=== PATIENT | female | born 1945 | race Caucasian/White ===

== ENCOUNTER → 2018-04-22 15:14 | Outpatient (CLI) | payer MEDICARE, SELFPAY ==
--- NOTE | 2018-04-22 15:15 | BI_ITS ---
MAMMOGRAPHY - BILATERAL SCREENING REASON FOR EXAM: Female, 72 years old. Routine annual screening examination. PERTINENT HISTORY: Aunt with breast cancer. TECHNIQUE: Digital bilateral breast isac (3D mammographic acquisition) in the CC and MLO projections. 2-D mediolateral oblique (MLO) and craniocaudad (CC) views of both breasts were obtained. CAD: Full Field Digital Mammography with Computer Added Detection was performed. COMPARISON: Comparison is made with prior study dated April 17, 2016 and December 23, 2014. FINDINGS: Breast Composition: The breasts are heterogeneously dense, which may obscure small masses. There are no dominant masses or suspicious calcifications. Stable calcified nodule in the retroareolar region of the right breast. This most likely represents a fibroadenoma. Stable benign-appearing bilateral axillary lymph nodes. No other significant abnormalities are identified. There has been no significant change since the prior study. BI/SCREENING MAMM (CAD), BILAT IMPRESSION: Stable bilateral screening mammogram. Yearly follow-up mammogram recommended. (A) ASSESSMENT CATEGORY: BIRADS Category 2: Benign. A letter regarding these results will be sent to the patient by the facility within 30 days. Approximately 10% of breast cancers are not detected by mammography. A normal mammogram should not delay biopsy of a clinically suspicious abnormality. [id number] Electronically Signed: Ozzy Miller MD at 10:07 EDT Tel [phone], Service support ,
--- NOTE | 2018-04-22 15:21 | BD_ITS ---
STUDY: DUAL ENERGY X-RAY ABSORPTIOMETRY / DXA REASON FOR EXAM: Female, 72 years old. Early menopause. Loss of height. TECHNIQUE: Bone Mineral Density (BMD) measurements of lumbar spine and bilateral hips were obtained. COMPARISON: Comparison is made with prior study dated April 17, 2016. FINDINGS: Lumbar Spine (L1-L4): g/cm2 (0.788) / T-score (-3.1) / Z-score (-1.4) Findings are suggestive of osteoporosis with a high fracture risk. Left Femur Total: g/cm2 (0.762) / T-score (-2.0) / Z-score (0.3) Left Femoral Neck: g/cm2 (0.663) / T-score (-2.7) / Z-score (-0.9) Right Femur Total: g/cm2 (0.733) / T-score (-2.2) / Z-score (-0.6) Right Femoral Neck: g/cm2 (0.684) / T-score (-2.5) / Z-score (-0.7) The T-Scores on the most recent prior examination were: Lumbar Spine (L1-L4): There has been worsening of bone density since the previous examination. Left Femur Total: which represents an improvement of 1.2%. Right Femur Total: which represents an improvement of 0.3%. BD/Dexa Bone Density Study IMPRESSION: The patient is considered osteoporotic as outlined below according to World Helad[employer] Organization (WHO) criteria with a high fracture risk. There has been improvement of bone density since the previous examination. Reference Information: The T-score is the number of standard deviations above or below the standard which is normal for young adults at their peak bone mineral density. The World Health Organization (WHO) interprets the T-scores as follows: Above -1 Normal bone density Between -1 and -2.5 Osteopenia Equal to / or below -2.5 Osteoporosis As a practical clinical guideline, osteopenia may be graded as follows: Mild -1 through -1.5 Moderate -1.6 through -2.0 Severe -2.1 through -2.4 The Z-score is the number of standard deviations above or below age-matched controls. A Z-score of less than -1.5 would be considered abnormal. References: 1. NIH Osteoporosis and Related Bone Diseases http://www.osteo.org 2. International Society for Clinical Densitometry http://www.iscd.org 3. National Osteoporosis Foundation http://www.nof.org Electronically Signed: Ozzy Miller MD at 15:24 EDT Tel [phone], Service support ,
== END ==
PROVIDERS: Family Provider Nurse Practitioner; PCP Nurse Practitioner; Visit Provider Nurse Practitioner
DX: Z12.31 Encounter for screening mammogram for malignant neoplasm of breast (principal); Z78.0 Asymptomatic menopausal state
CPT/HCPCS: 77063; 77067; 77080

== ENCOUNTER 2020-03-01 07:24 | Day surgery (SDC) | payer MEDICARE, SELFPAY ==
--- NOTE | 2020-02-03 03:44 | HP_ITS ---
Intake Vital Signs 02/03/20 Height 5 ft 3 in 02/03/20 Weight: 115 lb 02/03/20 BP 155/73 H 02/03/20 Blood Pressure Location Rt brachial 02/03/20 Position Sitting 02/03/20 Respiration 18 02/03/20 Pulse 92 02/03/20 Pulse Source Monitor 02/03/20 Temp 97.4 F L 02/03/20 Temp Source Temporal 02/03/20 Pulse Oximetry (%) 95 02/03/20 Oxygen Delivery Method room air Intake Visit Reasons: Inguinal hernia Chief Complaint: possible left inguinal hernia Tongue Stitcher Required: No Is patient in pain?: No Allergies codeine Allergy (Intermediate, Verified 02/03/20 08:13) stomach pains Medications ascorbic acid (vitamin C) 500 mg capsule mg PO DAILY cap 02/03/20 [History Confirmed 02/03/20] atorvastatin 40 mg tablet 40 mg PO DAILY 02/03/20 [History Confirmed 02/03/20] calcium carbonat and lactate 200 mg calcium-vitamin D3 250 unit tablet 1 tab PO DAILY tab 02/03/20 [History] hydrochlorothiazide 12.5 mg capsule 12.5 mg PO DAILY 02/03/20 [History Confirmed 02/03/20] losartan 50 mg tablet 50 mg PO DAILY 02/03/20 [History Confirmed 02/03/20] omeprazole 20 mg capsule,delayed release 20 mg PO DAILY 02/03/20 [History Confirmed 02/03/20] [facility] Medical History Acid reflux (Acute) Hemorrhoids (Acute) Smoker (Acute) COPD (chronic obstructive pulmonary disease) (Chronic) Hypertension (Chronic) Surgical History (Updated 02/03/20 @ 08:10 by Naomie Bradford) History of hysterectomy (Acute) History of laparoscopic cholecystectomy (Acute) History of right inguinal hernia repair (Acute) Family History (Updated 02/03/20 @ 08:11 by Naomie Bradford) Mother Diabetes Father Heart disease Aunt Osteoporosis Social History (Updated 02/03/20 @ 15:[address] Shawn Hickman MD) Smoking Status: Current every day smoker alcohol intake: never substance use type: does not use HPI HPI HPI: MARY REED, is a 74 F who presents to the office today for HPI HPI Surgical H&P: Yes HPI: MARY REED, is a 74 F who presents to the office today for Left groin bulging. The patient reports that for the last 3 months she is noticed left groin bulging. She says this is irritating her. No nausea or vomiting. She also reports that she is due for colonoscopy. Her last colonoscopy was 3 years ago and she had 3 adenomas at this time. She is not having any blood in her stool or abdominal pain. ROS General General: No weight change, appetite, fatigue, colon cancer, breast cancer or weakness HEENT HEENT: No difficulty swallowing, eye injury, eye surgery, swollen glands or hoarseness Endo Endocrine: No thyroid disease, diabetes mellitus, thyroid cancer, Hair loss, heat intolerance or cold intolerance Skin Skin: No rash or changing moles Breast Breast: No left breast lump, right breast lump, nipple discharge, breast pain, abnormal mammogram, abnormal US or breast enlargement Musc Musculoskeletal: No back problems, arthritis, rheumatoid arthritis, gout or joint pain Cardio Cardiovascular: Yes high blood pressure; no murmur, pacemaker, heart disease, atrial fibrillation, heart attack, heart stent, palpitations, shortness of breat with exertion or chest pain Psych Psychiatric: No depression, anxiety or hearing voices Resp Respiratory: No shortness of breath, No sleep apnea, No cough, Yes COPD, No asthma, No emphysema, No wheezing Gastro Gastrointestinal: No abdominal pain, No nausea or vomiting, No diarrhea, No constipation, No blood in stool, Yes acid reflux, Yes hemorrhoids, No ulcers, No gallbladder problem, No black,tarry stools Burt Hematologic: No blood thinners, No blood disorders, No bleeding, No anemia, No blood clots Neuro Neurologic: No system reviewed and no additional complaints, except as docu, No as per HPI, No abnormal walking, No abnormal hearing, No abnormal movements, No abnormal speech, No behavioral changes, No burning sensations, No confusion, No seizure-like activity, No unsteadiness, No dizziness, No localized weakness, No frequent falls, No headache(s), No lack of coordination, No loss of vision, No memory loss, No numbness, No other visual disturbances, No radiating pain, No restless legs, No sensory deficit, No fainting, No tingling, No tremor(s), No weakness, No other Exam Const General: cooperative Orientation: alert, oriented x3 HENMT Head: normal to inspection Ears: hearing grossly normal bilaterally Eyes General: appearance normal, both eyes and all related structures Visual Sorensen: normal visual sorensen by confrontation Neck Neck: normal visual inspection Chest Chest palpation & inspection: normal inspection of the chest Breast Palpation: No nipple discharge Resp Effort & Inspection: normal respiratory effort Auscultation: clear to auscultation bilaterally Cardio Rate: regular rate Rhythm: regular rhythm Heart Sounds: no murmurs GI Inspection: non-distended Palpation: soft, hernia direct inguinal on the left, nontender Musc Cervical Spine: normal cervical lordosis, cervical ROM normal Skin General: no rashes or lesions noted Neuro General: alert, oriented x3 Cranial Nerves: CN's II-XI intact bilaterally Cognition: normal cognition Extrem General: normal to inspection, full ROM Psych Appearance: grossly normal Affect: normal affect Assessment & Plan Problems 1. History of colon polyps Z86.010 2. Left inguinal hernia K40.90 Plan The patient needs a repeat colonoscopy. She had a colonoscopy 3 years ago and she had 3 tubular adenomas at that time. It was recommended that she repeat colonoscopy in 3 years. She is not having any abdominal pain or blood in her stool. I explained endoscopy in detail to the patient. I explained the risks including but not limited to stroke or heart attack with anesthesia, perforation of the GI tract, bleeding, infection. I explained that any of these could necessitate further emergency surgery. The patient understands and all questions were answered sufficiently. The patient wishes to proceed with procedure. The patient is also having a left inguinal hernia which is reducible. I discussed open and laparoscopic approach. The patient would like robotic assisted laparoscopic inguinal hernia repair with mesh. I discussed the procedure in detail. I discussed the risks including not limited to bleeding, infection, injury to other organs, chronic groin pain, conversion to open procedure. The patient understands the risks and is willing to proceed. We discussed the current risks associated with COVID-19. While it is understood that there is a community spread of COVID-19, the risk of nima COVID-19 while at [facility] ([facility]) is very low; however, the risk cannot be completely mitigated because of the community spread of the disease. We discussed in detail the risk of exposure to and/or potential harm posed by the COVID-19 virus with having a surgery/procedure at this time versus the risk of delaying the surgery/procedure. It is not possible to know either the risk of delaying the surgery or procedure or chance of getting an infection with perfect accuracy, but a joint decision was made to proceed at this time with the scheduled surgery/procedure as indicated on the consent form. Patient was notified that we will need to comply with any screening or testing [facility] wishes to perform or that surgery may be delayed for any positive results. Shawn Hickman MD Pager: [facility] [address] [place] [address] [address] [place] [address] Office: Orders Orders: Colonoscopy Today Z86.010 Coding Level of Care Code Off vis,new,level 4 Diagnoses History of colon polyps Z86.010 Left inguinal hernia K40.90 Time Spent (min) 45 02/03/20 3965 <Electronically signed by Shawn pena MD> Date _ Shawn Hickman MD I have re-examined the patient. There are no clinical changes since date of exam.
[2020-02-03 08:12] VITALS: BMI 20.3
--- NOTE | 2020-02-23 10:49 | EKG12_ITS ---
Test Reason : PRE OP Blood Pressure : / mmHG Vent. Rate : 069 BPM Atrial Rate : 069 BPM P-R Int : 196 ms QRS Dur : 080 ms QT Int : 386 ms P-R-T Axes : 079 071 079 degrees QTc Int : 413 ms Sinus rhythm with marked sinus arrhythmia Otherwise normal ECG Confirmed by NICK GRIMALDO ([id number]), avid editor LAWRENCE SINGH ([id number]) on 02/29/2020 9:45:56 AM Referred By: Shawn Hickman Confirmed By:NICK GRIMALDO
[2020-02-23 11:18] LABS: Hematocrit 46.7 % (37-47); Hemoglobin 15.4 g/dL (12.0-15.0); Mean Corpuscular Hgb 30.6 pg (27.0-32.0); Mean Corpuscular Volume 92.7 fL (81-99); Platelet Count 370 K/mm3 (150-450); RBC Distribution Width CV 13.2 % (11.6-14.6); RBC Distribution Width SD 44.9 fl (35.1-43.9); Red Blood Count 5.04 M/mm3 (4.2-5.4); White Blood Count 8.9 K/mm3 (4.4-11.0)
[2020-02-23 11:40] LABS: Anion Gap 4 (5-15); BUN 14 mg/dL (7-18); BUN/Creat Ratio 17.2 RATIO (10-20); Calcium,Total 9.3 mg/dL (8.5-10.1); Chloride 102 mmol/L (98-107); Creatinine, Serum 0.81 mg/dL (0.55-1.02); EST Glomerular Filtration Rate 73 mL/min (>60); Est Glom Filt Rate - Afr Amer 89 mL/min (>60); Glucose 137 mg/dL (74-106); Sodium Level 136 mmol/L (136-145)
[2020-03-01] VITALS (7 sets, daily range): BP systolic 94–138; BP diastolic 49–84; PULSE 72–111; RESP 14–16; TEMP 36.2–36.9; O2SAT 95–97; BMI 20.3
[2020-03-01] MEDS: Lactated Ringers 1,000 ML 100 ML IV (07:59)
--- NOTE | 2020-03-01 08:30 | COLBX_PTH ---
PATIENT: MARY REED LOC: EN U#:[id number] AGE/SX: 74/F ROOM: RE03/01/[address]: Dr. Shawn Hickman MD : 1945 BED: DIS: 03/01/2020 SPEC #: [id number] RECD: 03/01/20 10:51 STATUS: MARTIN NAREN #: [id number] ANABEL: 03/01/20 08:[address]: Shawn Hickman DEPT: SURGICAL PATHOLOGY RECD BY: Dayne Goff ENTERED: 03/01/20 11:46 SP TYPE: COLON BX OTHR DR: Magda Alejandra, CHILD CARE ASSISTANT-C Tissues: A - COLON BIOPSY B - Cecum, NOS Procedures: Surgery Specimen Level IV HEADER OPERATION: Colonoscopy (MAC) PRE-OP DIAGNOSIS: History polyps TISSUE SUBMITTED: A - Hepatic flexure polyp, B - Cecum polyps (2) MICROSCOPIC DIAGNOSIS A. Hepatic flexure polyp, biopsy: Fragments of tubular adenoma. B. Cecum polyps, biopsy: Fragments of tubulovillous adenoma. ANTONIETA:myles 03/02/20 MICROSCOPIC DESCRIPTION Slides are reviewed. GROSS DESCRIPTION A - Received in fixative is one container labeled with the patient's name and designated hepatic flexure polyp. The specimen consists of two irregular fragments of light starks soft tissue that in aggregate measure 0.5 x 0.5 x 0.1 cm. The specimen is totally submitted in one cassette. B - Received in fixative is one container labeled with the patient's name and designated cecum polyps. The specimen consists of multiple irregular fragments of light starks soft tissue that in aggregate measure 2 x 0.2 x 0.1 cm. The specimen is totally submitted in one cassette. / ANTONIETA:myles 03/01/20 TC:1 CPT: 32074
--- NOTE | 2020-03-01 09:08 | OP.CCLET_ITS ---
03/01/2020 Magda Alejandra NP [address] [place] [address] Re : Colonoscopy procedure for Nancy [facility] Dear Ms. Alejandra This procedure was performed on Sunday, March 01, 2020. My impressions and recommendations are as follows: Impressions : - Three polyps at the hepatic flexure and in the cecum, removed with a hot snare. Resected and retrieved. - Diverticulosis in the sigmoid colon. - The examination was otherwise normal on direct and retroflexion views. Recommendations : - Discharge patient to home. - Resume previous diet. - Continue present medications. - Await pathology results. - Repeat colonoscopy in 3 years for surveillance based on pathology results. My findings are described in the full procedure note, which is enclosed. If I can be of further assistance, please feel free to contact me at Doctor phone number(s): , Work: . Sincerely, Shawn Hickman MD 03/01/2020 9:06:58 AM This report has been signed electronically.
--- NOTE | 2020-03-01 09:08 | OP.COLON_ITS ---
Patient Name: Nancy Magaña Procedure Date: 03/01/2020 8:36 AM Date of : 1945 Age: 74 Procedure: Colonoscopy Indications: Surveillance: Personal history of colonic polyps (unknown histology) on last colonoscopy 3 years ago Providers: Shawn Hickman MD Referring MD: Shawn Hickman MD Medicines: Monitored Anesthesia Care Patient Profile: This is a 74 year old female. Refer to note in patient chart for documentation of history and physical. Last Colonoscopy: 3 years ago. Complications: No immediate complications. Procedure: Pre-Anesthesia Assessment: - Prior to the procedure, a History and Physical was performed, and patient medications and allergies were reviewed. The patient's tolerance of previous anesthesia was also reviewed. The risks and benefits of the procedure and the sedation options and risks were discussed with the patient. All questions were answered, and informed consent was obtained. Prior Anticoagulants: The patient has taken no previous anticoagulant or antiplatelet agents. ASA Grade Assessment: II - A patient with mild systemic disease. After reviewing the risks and benefits, the patient was deemed in satisfactory condition to undergo the procedure. After I obtained informed consent, the scope was passed under direct vision. Throughout the procedure, the patient's blood pressure, pulse, and oxygen saturations were monitored continuously. The pediatric colonoscope was introduced through the anus and advanced to the cecum, identified by appendiceal orifice and ileocecal valve. The colonoscopy was performed without difficulty. The patient tolerated the procedure well. The quality of the bowel preparation was good. Scope In: 8:49:45 AM Scope Withdrawal Time 0 hours 6 minutes 5 seconds Scope Out: 9:01:21 AM Total Procedure Duration Time 0 hours 11 minutes 36 seconds Findings: Three polyps were found in the hepatic flexure and cecum. These polyps were removed with a hot snare. Resection and retrieval were complete. A few small-mouthed diverticula were found in the sigmoid colon. The exam was otherwise without abnormality on direct and retroflexion views. Impression: - Three polyps at the hepatic flexure and in the cecum, removed with a hot snare. Resected and retrieved. - Diverticulosis in the sigmoid colon. - The examination was otherwise normal on direct and retroflexion views. Recommendation: - Discharge patient to home. - Resume previous diet. - Continue present medications. - Await pathology results. - Repeat colonoscopy in 3 years for surveillance based on pathology results. Procedure Code(s): --- Professional --- 35535, Colonoscopy, flexible; with removal of tumor(s), polyp(s), or other lesion(s) by snare technique Diagnosis Code(s): --- Professional --- Z86.010, Personal history of colonic polyps D12.3, Benign neoplasm of transverse colon (hepatic flexure or splenic flexure) D12.0, Benign neoplasm of cecum K57.30, Diverticulosis of large intestine without perforation or abscess without bleeding CPT copyright 2017 [employer]. All rights reserved. The codes documented in this report are preliminary and upon coffee plantation worker review may be revised to meet current compliance requirements. Shawn Hickman MD 03/01/2020 9:06:58 AM This report has been signed electronically. Number of Addenda: 0 Note Initiated On: 03/01/2020 8:36 AM
== END 2020-03-01 09:47 | disposition home or self-care (01) ==
LOC: EN 07:24 → AC 07:25
PROVIDERS: Anesthesiology; PCP Nurse Practitioner; Referring Provider Surgery; Visit Provider Surgery
PROC: 0DJD8ZZ Inspection of Lower Intestinal Tract, Via Natural or Artificial Opening Endoscopic (ICD-10-PCS; CPT 45378; principal; 2020-03-01 08:25)
DX: Z12.11 Encounter for screening for malignant neoplasm of colon (principal); Z87.19 Personal history of other diseases of the digestive system; K21.9 Gastro-esophageal reflux disease without esophagitis; I10 Essential (primary) hypertension; J44.9 Chronic obstructive pulmonary disease, unspecified; F17.200 Nicotine dependence, unspecified, uncomplicated; K40.90 Unilateral inguinal hernia, without obstruction or gangrene, not specified as recurrent; D12.0 Benign neoplasm of cecum; D12.3 Benign neoplasm of transverse colon; K57.30 Diverticulosis of large intestine without perforation or abscess without bleeding
CPT/HCPCS: 45385; 36415; 80048; 85027; 88305; 93005; J7120; J2405

== ENCOUNTER 2020-03-03 10:23 | Day surgery (SDC) | payer MEDICARE, SELFPAY ==
--- NOTE | 2020-02-03 03:44 | HP_ITS ---
Intake Vital Signs 02/03/20 Height 5 ft 3 in 02/03/20 Weight: 115 lb 02/03/20 BP 155/73 H 02/03/20 Blood Pressure Location Rt brachial 02/03/20 Position Sitting 02/03/20 Respiration 18 02/03/20 Pulse 92 02/03/20 Pulse Source Monitor 02/03/20 Temp 97.4 F L 02/03/20 Temp Source Temporal 02/03/20 Pulse Oximetry (%) 95 02/03/20 Oxygen Delivery Method room air Intake Visit Reasons: Inguinal hernia Chief Complaint: possible left inguinal hernia Childcare Director Required: No Is patient in pain?: No Allergies codeine Allergy (Intermediate, Verified 02/03/20 08:13) stomach pains Medications ascorbic acid (vitamin C) 500 mg capsule mg PO DAILY cap 02/03/20 [History Confirmed 02/03/20] atorvastatin 40 mg tablet 40 mg PO DAILY 02/03/20 [History Confirmed 02/03/20] calcium carbonat and lactate 200 mg calcium-vitamin D3 250 unit tablet 1 tab PO DAILY tab 02/03/20 [History] hydrochlorothiazide 12.5 mg capsule 12.5 mg PO DAILY 02/03/20 [History Confirmed 02/03/20] losartan 50 mg tablet 50 mg PO DAILY 02/03/20 [History Confirmed 02/03/20] omeprazole 20 mg capsule,delayed release 20 mg PO DAILY 02/03/20 [History Confirmed 02/03/20] [facility] Medical History Acid reflux (Acute) Hemorrhoids (Acute) Smoker (Acute) COPD (chronic obstructive pulmonary disease) (Chronic) Hypertension (Chronic) Surgical History (Updated 02/03/20 @ 08:10 by Naomie Bradford) History of hysterectomy (Acute) History of laparoscopic cholecystectomy (Acute) History of right inguinal hernia repair (Acute) Family History (Updated 02/03/20 @ 08:11 by Naomie Bradford) Mother Diabetes Father Heart disease Aunt Osteoporosis Social History (Updated 02/03/20 @ 15:[address] Shawn Hickman MD) Smoking Status: Current every day smoker alcohol intake: never substance use type: does not use HPI HPI HPI: MARY REED, is a 74 F who presents to the office today for HPI HPI Surgical H&P: Yes HPI: MARY REED, is a 74 F who presents to the office today for Left groin bulging. The patient reports that for the last 3 months she is noticed left groin bulging. She says this is irritating her. No nausea or vomiting. She also reports that she is due for colonoscopy. Her last colonoscopy was 3 years ago and she had 3 adenomas at this time. She is not having any blood in her stool or abdominal pain. ROS General General: No weight change, appetite, fatigue, colon cancer, breast cancer or weakness HEENT HEENT: No difficulty swallowing, eye injury, eye surgery, swollen glands or hoarseness Endo Endocrine: No thyroid disease, diabetes mellitus, thyroid cancer, Hair loss, heat intolerance or cold intolerance Skin Skin: No rash or changing moles Breast Breast: No left breast lump, right breast lump, nipple discharge, breast pain, abnormal mammogram, abnormal US or breast enlargement Musc Musculoskeletal: No back problems, arthritis, rheumatoid arthritis, gout or joint pain Cardio Cardiovascular: Yes high blood pressure; no murmur, pacemaker, heart disease, atrial fibrillation, heart attack, heart stent, palpitations, shortness of breat with exertion or chest pain Psych Psychiatric: No depression, anxiety or hearing voices Resp Respiratory: No shortness of breath, No sleep apnea, No cough, Yes COPD, No asthma, No emphysema, No wheezing Gastro Gastrointestinal: No abdominal pain, No nausea or vomiting, No diarrhea, No constipation, No blood in stool, Yes acid reflux, Yes hemorrhoids, No ulcers, No gallbladder problem, No black,tarry stools Burt Hematologic: No blood thinners, No blood disorders, No bleeding, No anemia, No blood clots Neuro Neurologic: No system reviewed and no additional complaints, except as docu, No as per HPI, No abnormal walking, No abnormal hearing, No abnormal movements, No abnormal speech, No behavioral changes, No burning sensations, No confusion, No seizure-like activity, No unsteadiness, No dizziness, No localized weakness, No frequent falls, No headache(s), No lack of coordination, No loss of vision, No memory loss, No numbness, No other visual disturbances, No radiating pain, No restless legs, No sensory deficit, No fainting, No tingling, No tremor(s), No weakness, No other Exam Const General: cooperative Orientation: alert, oriented x3 HENMT Head: normal to inspection Ears: hearing grossly normal bilaterally Eyes General: appearance normal, both eyes and all related structures Visual Sorensen: normal visual sorensen by confrontation Neck Neck: normal visual inspection Chest Chest palpation & inspection: normal inspection of the chest Breast Palpation: No nipple discharge Resp Effort & Inspection: normal respiratory effort Auscultation: clear to auscultation bilaterally Cardio Rate: regular rate Rhythm: regular rhythm Heart Sounds: no murmurs GI Inspection: non-distended Palpation: soft, hernia direct inguinal on the left, nontender Musc Cervical Spine: normal cervical lordosis, cervical ROM normal Skin General: no rashes or lesions noted Neuro General: alert, oriented x3 Cranial Nerves: CN's II-XI intact bilaterally Cognition: normal cognition Extrem General: normal to inspection, full ROM Psych Appearance: grossly normal Affect: normal affect Assessment & Plan Problems 1. History of colon polyps Z86.010 2. Left inguinal hernia K40.90 Plan The patient needs a repeat colonoscopy. She had a colonoscopy 3 years ago and she had 3 tubular adenomas at that time. It was recommended that she repeat colonoscopy in 3 years. She is not having any abdominal pain or blood in her stool. I explained endoscopy in detail to the patient. I explained the risks including but not limited to stroke or heart attack with anesthesia, perforation of the GI tract, bleeding, infection. I explained that any of these could necessitate further emergency surgery. The patient understands and all questions were answered sufficiently. The patient wishes to proceed with procedure. The patient is also having a left inguinal hernia which is reducible. I discussed open and laparoscopic approach. The patient would like robotic assisted laparoscopic inguinal hernia repair with mesh. I discussed the procedure in detail. I discussed the risks including not limited to bleeding, infection, injury to other organs, chronic groin pain, conversion to open procedure. The patient understands the risks and is willing to proceed. We discussed the current risks associated with COVID-19. While it is understood that there is a community spread of COVID-19, the risk of nima COVID-19 while at [facility] ([facility]) is very low; however, the risk cannot be completely mitigated because of the community spread of the disease. We discussed in detail the risk of exposure to and/or potential harm posed by the COVID-19 virus with having a surgery/procedure at this time versus the risk of delaying the surgery/procedure. It is not possible to know either the risk of delaying the surgery or procedure or chance of getting an infection with perfect accuracy, but a joint decision was made to proceed at this time with the scheduled surgery/procedure as indicated on the consent form. Patient was notified that we will need to comply with any screening or testing [facility] wishes to perform or that surgery may be delayed for any positive results. Shawn Hickman MD Pager: [facility] [address] [place] [address] [address] [place] [address] Office: Orders Orders: Colonoscopy Today Z86.010 Coding Level of Care Code Off vis,new,level 4 Diagnoses History of colon polyps Z86.010 Left inguinal hernia K40.90 Time Spent (min) 45 02/03/20 6045 <Electronically signed by Shawn pena MD> Date _ Shawn Hickman MD I have re-examined the patient. There are no clinical changes since date of exam.
[2020-02-03 08:12] VITALS: BMI 20.3
[2020-03-01 07:42] VITALS: BMI 20.3
[2020-03-03] VITALS (9 sets, daily range): BP systolic 107–156; BP diastolic 41–76; PULSE 16–86; RESP 15–22; TEMP 36–36.7; O2SAT 92–100; BMI 20.5
[2020-03-03] MEDS: Lactated Ringers 1,000 ML 100 ML IV ×2 (11:18→11:20)
[2020-03-03] MEDS: Cefazolin 2 GM in 0.9% Normal Saline 100 ML IV (12:03)
[2020-03-03] MEDS: Bupivacaine Mpf 0.5% 30 ML VIAL (13:15)
--- NOTE | 2020-03-03 13:36 | OP.PCM_ITS ---
Problem List (1) Left inguinal hernia Status: Acute Report of Operation Date of Procedure: 03/03/20 Pre-Operative Diagnosis: Left inguinal hernia Post-Operative Diagnosis: Same Surgery/Procedure Performed:: Left inguinal hernia repair with mesh Description of Procedure: Patient was brought back to the operating room and general anesthesia was induced. The abdomen was prepped and draped in usual sterile fashion. An incision was made superior to the umbilicus and the fascia was elevated and a Veress needle was placed into the abdomen. Drop test was performed and the abdomen was insufflated to 15 mmHg. The Veress needle was removed and the camera port was placed into the abdomen. The abdomen was inspected and there were no injuries. The patient was placed in Trendelenburg position and under direct visualization a right lower quadrant 8 mm port was placed and a left lower quadrant 8 mm port was placed. The robot was then docked. An incision was made in the peritoneum over the left inguinal region and this was dissected inferiorly until the hernia sac was encountered and reduced. Dissection was carried posteriorly until there was enough room for the mesh. Next pro-executive associate mesh was placed into the inguinal region and unfolded. I adequately covered the hernia with good coverage. The peritoneum was reapproximated using running V lock suture. This completely covered the mesh with peritoneum. Next the robot was undocked and the air was allowed to desufflate from the abdomen. The incisions were injected with local anesthetic and closed with interrupted 4-0 Monocryl sutures and as well as Steri-Strips and bandages. Patient was then awoken and taken to PACU in stable condition and tolerated procedure well. Grafts/Implants Used: Pro-executive associate mesh
--- NOTE | 2020-03-03 13:43 | DCINST_ITS ---
Discharge Diet: Light diet - advance as tolerated Discharge Activity: Return to Normal Activity, May Not Drive - for 2-3 days or while taking narcotic pain meds., May Shower - with the bandage in place 1-2 days after surgery. Lifting Restrictions: 20 pounds for 4 weeks. Additional Activity Instructions:: Climbing stairs is fine, walking is encouraged. Sitting in bed may be uncomfortable. Sitting up using your lateral muscles (sitting up sideways) is usually more comfortable. Do not drive, work heavy equipment of sign legal documents for 24 hours. Pain medications may cause nausea, you should typically eat light foods as you take your pain medications. Pain medications may also cause constipation. If you have difficulty with this, discuss with your doctor. Call your doctor if your incision/area has: Continuous Slow Oozing, Sudden Increased Bleeding, Increased Pain/ Swelling, Increased Redness, Foul Smelling Discharge Call your doctor if you observe: Fever of 101 or Higher Suture Line Care: Avoid Pulling/Pushing, Avoid Pinching/Bending Change Dressing in (Days):: 3 - Leave steri-strips for 1 week. May protect with a guaze bandaid. Cleanse incision/area with: Keep Dressing Clean & Dry Allergies/Adverse Reactions: Allergies codeine Allergy (Intermediate, Verified 03/03/20 10:38) stomach pains Medications to take at Discharge ascorbic acid (vitamin C) 500 mg capsule 1,000 mg PO DAILY cap 02/03/20 atorvastatin 40 mg tablet 40 mg PO QHS 02/03/20 calcium carbonat and lactate 200 mg calcium-vitamin D3 250 unit tablet 1 tab PO DAILY tab 02/03/20 hydrochlorothiazide 12.5 mg capsule 12.5 mg PO DAILY 02/03/20 losartan 50 mg tablet 50 mg PO DAILY 02/03/20 omeprazole 20 mg capsule,delayed release 20 mg PO DAILY 02/03/20 Budesonide/Formoterol 160/4.5 [Symbicort 160/4.5 Mcg Inhaler (SP)] 1 puff INHALATION DAILY 02/23/20 Oxycodone HCl/Acetaminophen [Percocet 5-325 mg Tablet] 1 - 2 tab PO Q6H PRN 5 Days #10 tablet 03/03/20 The following prescriptions were given: Oxycodone HCl/Acetaminophen [Percocet 5-325 mg Tablet] 1 - 2 tab PO Q6H PRN 5 Days #10 tablet PRN Reason: Pain Score 4-10/10 Transmission Status: Sent to [facility] Primary Care Physician: Magda Alejandra NP-C [Primary Care Provider] - Test Results: Test results from this visit will be discussed in further detail at your follow- up appointment, if applicable. Please Follow Up With: Shawn Hickman MD When: Please call to schedule 2 week follow up appointment. [phone]
== END 2020-03-03 16:17 | disposition home or self-care (01) ==
LOC: SDC 10:26 → AC 10:34
PROVIDERS: Anesthesiology; PCP Nurse Practitioner; Referring Provider Surgery; Visit Provider Surgery
PROC: 0YQ64ZZ Repair Left Inguinal Region, Percutaneous Endoscopic Approach (ICD-10-PCS; CPT 49505; principal; 2020-03-03 11:40)
DX: K40.90 Unilateral inguinal hernia, without obstruction or gangrene, not specified as recurrent (principal); I10 Essential (primary) hypertension; J44.9 Chronic obstructive pulmonary disease, unspecified; F17.200 Nicotine dependence, unspecified, uncomplicated; Z90.49 Acquired absence of other specified parts of digestive tract; Z90.710 Acquired absence of both cervix and uterus; Z86.010 Personal history of colon polyps
CPT/HCPCS: 00840; 49505; 87635; 94799; J7120; J2405; U0003

== ENCOUNTER 2020-09-22 18:05 | Observation (INO) | payer MEDICARE, SELFPAY ==
[2020-03-03 10:54] VITALS: BMI 20.5
[2020-09-22 18:06] VITALS: BP 165/76; PULSE 83; RESP 15; TEMP 36.5; O2SAT 93; BMI 20.7
[2020-09-22 18:08] VITALS: BP 165/76; PULSE 83; RESP 17; TEMP 36.5; O2SAT 95
--- NOTE | 2020-09-22 18:49 | ED.DCSUM_ITS ---
- ER Visit Summary Date of Service: 09/22/20 Chief Complaint: Lower back and right leg pain. History of Present Illness: The patient is a 75 F history of hypertension, high cholesterol and osteoporosis. No prior back history of back surgery. Prior cholecystectomy, hysterectomy and hernia repair. Patient states for about 2 weeks she has had lower back pain began on the Saturday the next day it was radiating to her right leg. Denies any numbness, weakness bowel or bladder incontinence or retention. No prior history. No fever. No trauma. She is on no blood thinners. Nothing particular makes this better. Movement of the right leg makes it worse and it does go down the leg. She denies any fever or chills or any type of back injections. Physical Examination: Alert female accompanied by family. Vital signs stable afebrile. No distress. HEENT exam unremarkable. Neck nontender no lymphadenopathy. Lungs clear to auscultation bilaterally. Heart regular rhythm no murmur. Abdomen soft nontender normal bowel sounds no peritoneal signs. No pulsatile mass. Extremities moves all 4. Neurovascular intact. Both upper extremities neurovascular tach with 5-5 flash ranging crewmember strength. Both lower extremities have normal dorsi and plantar flexion. 5-5 motor strength. Negative straight leg raise on the left positive straight leg raise on the right at about 45 degrees. No cauda equina. Normal medial thigh sensation. Back nontender SI joint no specific tenderness. No signs of trauma. Neurologic exam normal. No focal motor or sensory deficits. Test Results: None Emergency Department Course and Treatment: Patient's history and exam are consistent with right-sided sciatica versus a disc with radiculopathy. She has no signs of cauda equina. She does not need any emergent imaging at this time. She will be started on p.o. prednisone given IM injection of morphine and reexamined. Treatment Plan: Patient started having more pain after he moves around the room. We attempted to ambulate her and she was having too much pain to put pressure on her right leg. Her exam otherwise was unchanged. Did place an IV gave her IV morphine and Zofran. Screening labs are being obtained. I spoke to the patient and family and I spoke to the hospitalist to admit the patient for intractable pain and further evaluation. Disposition: Discharge Impression: Acute right-sided sciatica Intractable pain Unable to ambulate This note was generated with [employer] dictation software. It may contain incorrect words, spelling, and punctuation that were not noted in review of the chart prior to signing ED Disposition - Plan for ED Patient: Disposition: Home or Assisted Living Instructions: ED Sciatica Prescriptions: Prednisone [Deltasone] 40 mg PO DAILY 7 Days tablet Prescription Printed Hydrocodone Bitart/Apap 5-325 [[place] 5MG-325MG] 1 - 2 tablet PO Q4H PRN PRN 5 Days #14 tablet PRN Reason: Pain Prescription Printed Referrals: Magda Alejandra ACQUISITION PROFESSIONAL, ACQUISITION PROFESSIONAL-C [Primary Care Provider] - As Needed Additional Instructions: Prednisone daily until gone. [place] as needed for pain. This is a narcotic pain medication. Make sure you are drinking plenty of fluids and fiber cereal get constipated. Do not drive if taking it for pain. Do not drink alcohol with it. And be very careful on steps he do not fall. Limited Motrin as needed for 100 mg twice a day. Follow-up with your orthopedic doctor appointment tomorrow. This appears to be right-sided sciatica. If it is not improving they will need to get an MRI in the next 1 to 2 weeks to make sure it is not a disc impinging on a nerve.
--- NOTE | 2020-09-22 18:53 | DCINST.ED_ITS ---
ED Disposition - Plan for ED Patient: Disposition: Home or Assisted Living Instructions: ED Sciatica Prescriptions: Prednisone [Deltasone] 40 mg PO DAILY 7 Days tablet Prescription Printed Hydrocodone Bitart/Apap 5-325 [[place] 5MG-325MG] 1 - 2 tablet PO Q4H PRN PRN 5 Days #14 tablet PRN Reason: Pain Prescription Printed Referrals: Magda Alejandra REAL ESTATE LEASING MANAGER, REAL ESTATE LEASING MANAGER-C [Primary Care Provider] - As Needed Additional Instructions: Prednisone daily until gone. [place] as needed for pain. This is a narcotic pain medication. Make sure you are drinking plenty of fluids and fiber cereal get constipated. Do not drive if taking it for pain. Do not drink alcohol with it. And be very careful on steps he do not fall. Limited Motrin as needed for 100 mg twice a day. Follow-up with your orthopedic doctor appointment tomorrow. This appears to be right-sided sciatica. If it is not improving they will need to get an MRI in the next 1 to 2 weeks to make sure it is not a disc impinging on a nerve.
[2020-09-22] MEDS: morphine 8 MG/ML Syringe IM (18:56)
[2020-09-22] MEDS: predniSONE 20 MG Tablet 60 MG PO (18:57)
--- NOTE | 2020-09-22 21:15 | PCM.HP.STD ---
Problem List (1) Sciatica Status: Acute (2) Low back pain Status: Acute (3) Left inguinal hernia Status: Chronic History of Present Illness Date of Admission: 09/22/20 Chief Complaint: lower back pain The patient is a 75 year old F with a significant history of COPD; hypertension and tobacco abuse who presents to the emergency department with lower back pain. She described her pain as sharp. Her back pain started about 2 weeks ago and during this timeframe her back pain has actually improved. This back pain radiates to her right leg and she has developed progressively worsening right leg pain. Her pain improves with lying still and it worsens with standing or with activity. At emergency department the initial plan was to discharge patient home but because patient could not stand on her right leg a decision was made to make patient stay at the hospital. Patient denies bowel or bladder symptoms. Patient prior to presentation already had a scheduled appointment with orthopedic for 09/23/2020. Past Medical History Past Medical History (Chronic Problems): Chronic Problems (Last Reviewed 09/22/20 @ 21:[address] Bjorn Manrique MD) Left inguinal hernia (Chronic) Medical History: Medical History (Last Reviewed 09/22/20 @ 21:[address] Bjorn Manrique MD) Acid reflux K21.9 Hemorrhoids K64.9 Smoker F17.200 COPD (chronic obstructive pulmonary disease) J44.9 Hypertension I10 Allergies codeine Allergy (Intermediate, Verified 09/22/20 18:06) stomach pains Home Medications: Ambulatory Orders Medication Instructions Recorded ascorbic acid (vitamin C) 500 mg 1,000 mg PO DAILY cap 02/03/20 capsule atorvastatin 40 mg tablet 40 mg PO QHS 02/03/20 calcium carbonat and lactate 200 1 tab PO DAILY tab 02/03/20 mg calcium-vitamin D3 250 unit tablet hydrochlorothiazide 12.5 mg capsule 12.5 mg PO DAILY 02/03/20 losartan 50 mg tablet 50 mg PO DAILY 02/03/20 omeprazole 20 mg capsule,delayed 20 mg PO DAILY 02/03/20 release Budesonide/Formoterol 160/4.5 1 puff INHALATION DAILY 02/23/20 [Symbicort 160/4.5 Mcg Inhaler (SP)] Hydrocodone Bitart/Apap 5-325 1 - 2 tablet PO Q4H PRN PRN 5 Days 09/22/20 [[place] 5MG-325MG] #14 tablet Prednisone [Deltasone] 40 mg PO DAILY 7 Days tablet 09/22/20 Surgical History: Surgical History (Last Reviewed 09/22/20 @ 21:[address] Bjorn Manrique MD) History of hysterectomy Z90.710 History of laparoscopic cholecystectomy Z90.49 History of left inguinal hernia repair Onset Date: ~03/2020 Z98.890, Z87.19 History of right inguinal hernia repair Z98.890, Z87.19 Smoking Status: Current every day smoker Tobacco Use: Cigarettes - *Family History Maternal Family History: Family History (Last Reviewed 09/22/20 @ 21:[address] Bjorn Manrique MD) Mother Diabetes Father Heart disease Aunt Osteoporosis Review of Systems Constitutional: Denies: Chills, Fever, Weight Change HEENT: Denies: Head Aches, Sinus Congestion, Sinus Drainage Cardiovascular: Denies: Chest Pain, Palpitations Respiratory: Denies: Cough, Shortness of breath at rest, Sputum production Gastrointestinal: Denies: Abdominal Pain, Nausea, Vomiting Genitourinary: Denies: Dysuria Musculoskeletal: Reports: Back Pain, Leg Pain. Denies: Joint Pain, Joint Tenderness Skin: Denies: Rash, Wounds Neurological: Denies: Numbness, Tingling, Focal weakness Psychiatric: Denies: Anxiety, Depression, Homicidal Ideations, Suicidal Ideations Hematologic/ Lymphatic: Denies: Easy Bruising, Easy Bleeding VTE Information - Inpt Only VTE Present on Admission: No VTE Mechan Device Prophylaxis: None VTE Pharm Prophylaxis ordered?: Yes Patient Problems: Active and Suspected Problems (Last Reviewed 09/22/20 @ 21:[address] Bjorn Manrique MD) Sciatica (Acute) Low back pain (Acute) - Physical Exam Vitals/I&O's: Vital Signs Temp Pulse Resp BP Pulse Ox 97.7 F L 83 17 165/76 H 95 09/22/20 18:08 09/22/20 18:08 09/22/20 18:08 09/22/20 18:08 09/22/20 18:08 Oxygen Delivery Method Room Air Weight: 52.163 kg Body Mass Index (BMI) 20.7 General: Alert, Oriented x3, Cooperative HEENT: Atraumatic, PERRLA, EOMI, Normocephalic Neck: Supple, No JVD, Negative Carotid Bruits Lungs: Clear to auscultation, Normal air movement Cardiovascular: Regular rate, No murmurs Abdomen: Bowel Sounds Present, Soft, Non Tender Extremities: No edema, Capillary Refill Less than 3 Seconds Skin: No rashes, No breakdown Musculoskeletal: No Tenderness to Palpation of Joints or Extremities, - - Positive straight leg raise test on the right. Negative straight leg raise tests on the left Neurological: Cranial nerves II-XII grossly intact, - - Strength 5 out of 5 in bilateral lower extremities. Psych/Mental Status: Normal Affect, Appropriate Assessment/Plan All Active Problems (Last Reviewed 09/22/20 @ 21:[address] Bjorn Manrique MD) Sciatica (Acute) Low back pain (Acute) The patient is a 75 year old F with a significant history of COPD hypertension and tobacco abuse who presents emergency department with lower back pain radiating to her right leg. Acute low back pain with sciatica. Received morphine sulfate and prednisone emergency department. Prednisone 40 mg daily. [place] as needed ordered. Antiemetics with Zofran as needed. Bowel protocol in place. PT and OT to work with patient. If patient 's pain does not improve MRI can be considered in due course. Tobacco abuse Counseled Nicotine patch prescribed. Hypertension Blood pressure is not within goal Losartan continued. As needed hydralazine ordered. Trend blood pressure and adjust blood pressure medications. DVT prophylaxis Subcutaneous Lovenox OBSV E&M: 91930 Initial observation care L2
[2020-09-22] MEDS: Morphine 4 MG/ML Syringe 6 MG IV (21:19)
[2020-09-22] MEDS: Ondansetron 4 MG/2 ML Vial IV (21:19)
[2020-09-22 21:21] VITALS: BP 151/66; PULSE 83; RESP 16; TEMP 36.6; O2SAT 94
[2020-09-22 21:34] LABS: Absolute Lymphocyte Count 0.82 X10^3/uL (0.83-4.51); Absolute Neutrophil Count 8.8 X10^3/uL (2.0-7.7); Basophil# 0.05 X10^3/uL; Basophil% 0.5 % (0-1); Eosinophil# 0.03 X10^3/uL; Eosinophils% 0.3 % (0-5); Hemoglobin 12.9 g/dL (12.0-15.0); Lymphocyte # 0.82 X10^3/ul (4.0); Lymphocyte % 8.2 % (19-41); Mean Corp Hgb Conc 33.9 g/dL (32-36); Mean Corpuscular Hgb 30.9 pg (27.0-32.0); Mean Corpuscular Volume 91.1 fL (81-99); Mean Platelet Vol. 9.6 fl (6.2-12.0); Monocyte# 0.31 X10^3/uL; Monocyte% 3.1 % (0-10); NRBC Flagged by Analyzer 0 % (0-5); Neutrophil # 8.81 X10^3/uL (2.7-7.7); Neutrophil % 87.6 % (47-70); Platelet Count 357 K/mm3 (150-450); RBC Distribution Width CV 12.6 % (11.6-14.6); RBC Distribution Width SD 42.1 fl (35.1-43.9); Red Blood Count 4.17 M/mm3 (4.2-5.4); White Blood Count 10.1 K/mm3 (4.4-11.0)
[2020-09-22 21:53] LABS: Anion Gap 4 (5-15); BUN 17 mg/dL (7-18); BUN/Creat Ratio 28.2 RATIO (10-20); Chloride 108 mmol/L (98-107); EST Glomerular Filtration Rate 103 mL/min (>60); Est Glom Filt Rate - Afr Amer 125 mL/min (>60); Estimated Creatinine Clearance 38.44 ml/min; Glucose 116 mg/dL (74-106); Potassium 3.4 mmol/L (3.5-5.1); Sodium Level 139 mmol/L (136-145)
[2020-09-22 21:55] VITALS: BMI 21.2
[2020-09-22 21:58] VITALS: BMI 21.2
[2020-09-22 22:10] VITALS: BP 135/64; PULSE 75; RESP 16; TEMP 36.9; O2SAT 94
[2020-09-22] MEDS: HYDROcodone Bitartrate/Apap 5/325 Tablet PO (22:27)
[2020-09-22] MEDS: Atorvastatin Calcium 40 MG Tablet PO (22:28)
[2020-09-22 23:02] VITALS: O2SAT 93
[2020-09-23] VITALS (8 sets, daily range): BP systolic 124–143; BP diastolic 45–56; PULSE 65–92; RESP 16–20; TEMP 36.5–36.9; O2SAT 93–98
[2020-09-23] MEDS: HYDROcodone Bitartrate/Apap 5/325 Tablet PO ×2 (03:09→08:27)
[2020-09-23 06:54] LABS: Anion Gap 6 (5-15); BUN 16 mg/dL (7-18); BUN/Creat Ratio 26.3 RATIO (10-20); Calcium,Total 9.1 mg/dL (8.5-10.1); Chloride 104 mmol/L (98-107); Creatinine, Serum 0.61 mg/dL (0.55-1.02); EST Glomerular Filtration Rate 102 mL/min (>60); Est Glom Filt Rate - Afr Amer 123 mL/min (>60); Estimated Creatinine Clearance 38.44 ml/min; Glucose 139 mg/dL (74-106); Potassium 3.8 mmol/L (3.5-5.1); Sodium Level 138 mmol/L (136-145)
[2020-09-23] MEDS: Albuterol 2.5 MG/3 ML VIAL.NEB. INHALATION ×3 (07:05→19:47)
--- NOTE | 2020-09-23 08:43 | MRI_ITS ---
STUDY: MRI LUMBAR SPINE WITHOUT CONTRAST REASON FOR EXAM: Female, 75 years old. back with radiculopathy TECHNIQUE: Standardized fat and water weighted pulse sequences were obtained in the sagittal and axial planes. COMPARISON: None FINDINGS: T12-L1: Normal endplates. Normal disc height, hydration and morphology. Normal bilateral facet joints. Normal central canal and bilateral lateral recesses. Normal bilateral intervertebral neural foramina. Normal lumbar lordosis. There is no substantial scoliosis. Normal conus medullaris that terminates at the L1. L1-2: Normal endplates. Normal disc height, hydration and morphology. Normal bilateral facet joints. Normal central canal and bilateral lateral recesses. Normal bilateral intervertebral neural foramina. L2-3: Normal endplates. Normal disc height, hydration and morphology. Normal bilateral facet joints. Normal central canal and bilateral lateral recesses. Normal bilateral intervertebral neural foramina. L3-4: Mild bilateral facet hypertrophy and moderate ligament flavum hypertrophy. Mild bilobed disc protrusion produces mild spinal stenosis and mild bilateral neural foraminal stenosis. L4-5: Mild bilateral facet hypertrophy and ligament flavum hypertrophy. Moderate broad disc protrusion produces moderate spinal stenosis with moderate bilateral lateral recess stenosis with abutment of the L5 nerve roots bilaterally, mild right neural foraminal stenosis and with a superiorly extending left foraminal extrusion which produces moderate left neural foraminal stenosis with abutment of the left L4 nerve root laterally. L5-S1: Mild bilateral facet hypertrophy and ligament flavum hypertrophy. Moderate broad disc protrusion produces moderate spinal stenosis and moderate bilateral neural foraminal stenosis with abutment of the exiting L5 nerve roots bilaterally. Normal visualized sacral ala. Normal visualized paraspinous soft tissue structures. MRI/Spine Lumbar (Routine) IMPRESSION: Multilevel degenerative changes, as described above. Electronically Signed: Matt Fairbanks MD at 12:27 EDT Tel , Service support ,
[2020-09-23] MEDS: Pantoprazole Sodium 20 MG Tablet PO (09:22)
[2020-09-23] MEDS: Losartan Potassium 50 MG Tablet PO (09:22)
[2020-09-23] MEDS: predniSONE 20 MG Tablet 40 MG PO (09:24)
[2020-09-23] MEDS: Ascorbic Acid 500 MG Tablet 1000 MG PO (09:26)
[2020-09-23] MEDS: Calcium Carb/Vitamin D 1 TABLET Tablet PO (09:26)
[2020-09-23] MEDS: hydroCHLOROthiazide 12.5mg 12.5 MG PO (09:26)
[2020-09-23] MEDS: Enoxaparin 40 MG/0.4 ML Syringe SC (09:27)
[2020-09-23] MEDS: 0.9% Saline Lock 10 ML Syringe IV ×2 (10:10→17:47)
[2020-09-23] MEDS: Morphine 4 MG/ML Syringe IV (10:10)
--- NOTE | 2020-09-23 11:05 | CASEMGMT ---
MIRIAM BALDERAS Face to Face with patient for initial transition planning/care coordination assessment. RN CM introduced self and role at [facility]. Patient lying in bed, alert and oriented. Patient willing to participate in assessment and is able to answer all questions appropriately. Care providers, pharmacy, and demographics verified. Patient is not sure of disposition at discharge as she states she cannot do anything because of her pain. Will monitor progress with therapy. Patient states she has no further needs or concerns at this time. CM to follow for discharge planning needs that may arise. PCP: Magda Alejandra NP Specialists: none Preferred [facility]acy: [facility] in [place] Insurance: [employer] Prescription Benefit: yes Living Will/HPOA: none LNOK: son, DIL Living Arrangements: Patient lives alone in a 2 story home with bed and bath on first floor. 4 steps and railing to enter the home. Patient states she is independent at home. Transportation: self/DIL DME/HHC: Patient states she has cane and raised toilet at home. Denies previous HHC. Patient unsure if she will need walker at discharge or HHC vs SNF. Patient states she wont know until her pain gets fixed. Will monitor how patient progresses with therapy. Disposition Plan: TBD, will monitor course of treatment and progress with therapy. Mary Anne CARO, RN, CM
[2020-09-23] MEDS: oxyCODONE 5 MG Tablet 10 MG PO ×2 (13:06→21:19)
--- NOTE | 2020-09-23 13:44 | PN_ITS ---
Patient Problems: Active and Suspected Problems (Last Reviewed 09/22/20 @ 21:[address] Bjorn Manrique MD) Sciatica (Acute) Low back pain (Acute) Subjective: still with right leg pain and back pain. Has had transient episodes before, but would respond spontaneously. Vitals/I&O's: Vital Signs Temp Pulse Resp BP Pulse Ox 36.6 C 73 16 124/52 H 95 09/23/20 07:25 09/23/20 12:31 09/23/20 12:31 09/23/20 07:25 09/23/20 07:25 Oxygen Flow Rate (L/min) 2 Oxygen Delivery Method Nasal Cannula Weight: 53.479 kg Body Mass Index (BMI) 21.2 Intake and Output for Last 24 Hours 09/21/20 09/22/20 09/23/20 23:59 23:59 23:59 Intake Total 700 / 700 Output Total 200 / 200 Balance 500 / 500 General: Alert, No apparent distress HEENT: Atraumatic, Normocephalic Extremities: No edema, No Calf Tenderness Skin: No rashes, No breakdown Musculoskeletal: No Tenderness to Palpation of Joints or Extremities, No Muscle Wasting Neurological: Motor Exam 5/5 strength throughout - in LE, - - 3/5 bilateral patellar DTRs Psych/Mental Status: Normal Affect, Appropriate Laboratory Results 09/22/20 21:25: WBC 10.1, RBC 4.17 L, Hgb 12.9, Hct 38.0, MCV 91.1, MCH 30.9, MCHC 33.9, RDW Std Deviation 42.1, RDW Coeff of Ivan 12.6, Plt Count 357, MPV 9.6, Immature Gran % (Auto) 0.300, Neut % (Auto) 87.6 H, Lymph % (Auto) 8.2 L, [place] % (Auto) 3.1, Eos % (Auto) 0.3, Baso % (Auto) 0.5, Absolute Neuts (auto) 8.8 H, Absolute Lymphs (auto) 0.82 L, Nucleated RBC % 0 09/22/20 21:25: Sodium 139, Potassium 3.4 L, Chloride 108 H, Carbon Dioxide 27.0, Anion Gap 4 L, BUN 17, Creatinine 0.60, Estim Creat Clear Calc 38.44, Est GFR (MDRD) Af Amer 125, Est GFR (MDRD) Non-Af 103, BUN/Creatinine Ratio 28.2 H, Glucose 116 H, Calcium 9.0 09/23/20 06:15: Sodium 138, Potassium 3.8, Chloride 104, Carbon Dioxide 28.0, Anion Gap 6, BUN 16, Creatinine 0.61, Estim Creat Clear Calc 38.44, Est GFR (MDRD) Af Amer 123, Est GFR (MDRD) Non-Af 102, BUN/Creatinine Ratio 26.3 H, Glucose 139 H, Calcium 9.1 Current Medications Albuterol Sulfate (Albuterol 2.5 Mg/3 Ml Vial.Neb.) 2.5 mg INHALATION Q6HWA.RT [facility] Last Admin: 09/23/20 12:30 Dose: 2.5 mg Documented by: Ascorbic Acid (Ascorbic Acid 500 Mg Tablet) 1,000 mg PO DAILY [facility] Last Admin: 09/23/20 09:26 Dose: 1,000 mg Documented by: Atorvastatin Calcium (Atorvastatin Calcium 40 Mg Tablet) 40 mg PO QHS [facility] Last Admin: 09/22/20 22:28 Dose: 40 mg Documented by: Calcium/Vitamin D (Calcium Carb/Vitamin D 1 Tablet Tablet) 1 tablet PO DAILY [facility] Last Admin: 09/23/20 09:26 Dose: 1 tablet Documented by: Enoxaparin Sodium (Enoxaparin 40 Mg/0.4 Ml Syringe) 40 mg SC DAILY [facility] Last Admin: 09/23/20 09:27 Dose: 40 mg Documented by: Hydralazine HCl (Hydralazine 20 Mg/Ml Vial) 5 mg IV Q6H PRN PRN PRN Reason: SBP > 160 or DBP > 120 Hydrochlorothiazide (Hydrochlorothiazide 12.5mg) 12.5 mg PO DAILY [facility] Last Admin: 09/23/20 09:26 Dose: 12.5 mg Documented by: Sodium Chloride () 250 mls @ 15 mls/hr IV .[id number] PRN PRN Reason: Saline Flush Losartan Potassium (Losartan Potassium 50 Mg Tablet) 50 mg PO DAILY [facility] Last Admin: 09/23/20 09:22 Dose: 50 mg Documented by: Melatonin (Melatonin 3 Mg Tablet) 3 mg PO QHS PRN PRN PRN Reason: INSOMNIA Nicotine (Nicotine 14 Mg Patch) 14 mg TD DAILY [facility] Last Admin: 09/23/20 09:27 Dose: 14 mg Documented by: Ondansetron HCl (Ondansetron 4 Mg/2 Ml Vial) 4 mg IV Q8H PRN PRN PRN Reason: NAUSEA/VOMITING Oxycodone HCl (Oxycodone 5 Mg Tablet) 5 mg PO Q4H PRN PRN PRN Reason: Pain Score 4-5 Oxycodone HCl (Oxycodone 5 Mg Tablet) 10 mg PO Q4H PRN PRN PRN Reason: Pain Score 6-10 Last Admin: 09/23/20 13:06 Dose: 10 mg Documented by: Pantoprazole Sodium (Pantoprazole Sodium 20 Mg Tablet) 20 mg PO DAILY [facility] Last Admin: 09/23/20 09:22 Dose: 20 mg Documented by: Prednisone (Prednisone 20 Mg Tablet) 40 mg PO DAILY@0800 [facility] Last Admin: 09/23/20 09:24 Dose: 40 mg Documented by: Sodium Chloride (0.9% Saline Lock 10 Ml Syringe) 10 - 40 ml IV UD PRN PRN Reason: SALINE FLUSH Last Admin: 09/23/20 10:10 Dose: 10 ml Documented by: STROKE Vital Signs/Narrative: Vital Signs Pulse Resp 09/23/20 12:31 73 16 Medical Necessity - Tobacco Use Smoking Status: Current every day smoker Tobacco Use: Cigarettes Assessment/Plan All Active Problems (Last Reviewed 09/22/20 @ 21:[address] Bjorn Manrique MD) Sciatica (Acute) Low back pain (Acute) 1. right leg pain. pain radiates from hip to ankle MRI performed and showed abutment of the L5 nerve root. Plan: * continue with prednisone * optimize pain medication * attempt consultation to pain mgmt for addition input and recs 2. HTN stable plan: continue HCTZ, losartan 3. VTE prophylaxis: LMWH OBSV E&M: [id number] Subsequent observation care L2
[2020-09-23] MEDS: Calcium Carbonate 500 MG Tablet PO (15:31)
[2020-09-23] MEDS: Lidocaine 5% Patch 1 PATCH TOPICAL (17:47)
[2020-09-23] MEDS: Ketorolac 15 MG/ML Vial IV (17:47)
--- NOTE | 2020-09-23 18:46 | CON.PCM_ITS ---
Problem List (1) Acute right lumbar radiculopathy Status: Acute (2) Acute right lumbar radiculopathy Status: Acute (3) Spinal stenosis, lumbar region with neurogenic claudication Status: Acute (4) Spinal stenosis, lumbar region with neurogenic claudication Status: Acute (5) Intervertebral disc stenosis of neural canal of lumbar region Status: Acute (6) Intervertebral disc stenosis of neural canal of lumbar region Status: Acute (7) Other intervertebral disc displacement, lumbar region Status: Acute (8) Other intervertebral disc displacement, lumbar region Status: Acute (9) Intervertebral disc disorders with radiculopathy, lumbar region Status: Acute (10) Unspecified abnormalities of gait and mobility Status: Acute (11) Myalgia, unspecified site Status: Acute Reason for Consult Date of Consultation: 09/23/20 History of Present Illness: The patient is a 75 year old F who has presented to the hospital with 2 weeks progressive severe lower back pain, radiating to the right leg with difficulty walking. Patient stated that that she has the pain progressive for the past couple of weeks and getting worse, she has severe intractable pain causing severe anxiety throughout her body as she was not able to functioning at home. Patient has baseline that she has been highly functioning, independent at home. She has associated the pain with radiating left leg pain with associated numbness and tingling that affected the right leg. She came to the emergency room given prednisone orally and had an MRI, MRI findings showed extensive foraminal narrowing at L4-5 5 S1 which is noted as severe at both right and left but she has more symptoms on the right than the left. Patient has also no acute fracture noted. She denies any issue with bladder or bowel control she describes no radicular pain she denies any foot drop. Patient started on prednisone and some Toradol she is still having a lot of pain not able to have independent steps, not able to perspective the therapy of the pain rating the pain as 10 pain is sharp s hooting down the right leg, decreased with certain positions laying on her back but also increased with any weightbearing. [] Past Medical History Past Medical History (Chronic Problems): Chronic Problems (Last Reviewed 09/22/20 @ 21:[address] Bjorn Manrique MD) Left inguinal hernia (Chronic) Medical History: Medical History (Last Reviewed 09/22/20 @ 21:[address] Bjorn Manrique MD) Acid reflux K21.9 Hemorrhoids K64.9 Smoker F17.200 COPD (chronic obstructive pulmonary disease) J44.9 Hypertension I10 Allergies codeine Allergy (Intermediate, Verified 09/22/20 18:06) stomach pains Home Medications: Ambulatory Orders Medication Instructions Recorded ascorbic acid (vitamin C) 500 mg 1,000 mg PO DAILY cap 02/03/20 capsule atorvastatin 40 mg tablet 40 mg PO QHS 02/03/20 calcium carbonat and lactate 200 1 tab PO DAILY tab 02/03/20 mg calcium-vitamin D3 250 unit tablet hydrochlorothiazide 12.5 mg capsule 12.5 mg PO DAILY 02/03/20 losartan 50 mg tablet 50 mg PO DAILY 02/03/20 omeprazole 20 mg capsule,delayed 20 mg PO DAILY 02/03/20 release Budesonide/Formoterol 160/4.5 1 puff INHALATION DAILY 02/23/20 [Symbicort 160/4.5 Mcg Inhaler (SP)] Hydrocodone Bitart/Apap 5-325 1 - 2 tablet PO Q4H PRN PRN 5 Days 09/22/20 [Delta 5MG-325MG] #14 tablet Prednisone [Deltasone] 40 mg PO DAILY 7 Days tablet 09/22/20 Surgical History: Surgical History (Last Reviewed 09/22/20 @ 21:[address] Bjorn Manrique MD) History of hysterectomy Z90.710 History of laparoscopic cholecystectomy Z90.49 History of left inguinal hernia repair Onset Date: ~03/2020 Z98.890, Z87.19 History of right inguinal hernia repair Z98.890, Z87.19 Smoking Status: Current every day smoker Tobacco Use: Cigarettes - *Family History Maternal Family History: Family History (Last Reviewed 09/22/20 @ 21:[address] Bjorn Manrique MD) Mother Diabetes Father Heart disease Aunt Osteoporosis Review of Systems Constitutional: Denies: Chills, Fever, Weight Change HEENT: Denies: Head Aches, Sinus Congestion, Sinus Drainage Cardiovascular: Denies: Chest Pain, Palpitations Respiratory: Denies: Cough, Shortness of breath at rest, Sputum production Gastrointestinal: Denies: Abdominal Pain, Nausea, Vomiting Genitourinary: Denies: Dysuria Musculoskeletal: Reports: Leg Pain, Muscle pain. Denies: Joint Pain, Joint Tenderness Skin: Denies: Rash, Wounds Neurological: Reports: Balance problems. Denies: Focal weakness, Numbness, Tingling Psychiatric: Denies: Anxiety, Depression, Homicidal Ideations, Suicidal Ideations Hematologic/ Lymphatic: Denies: Easy Bruising, Easy Bleeding Patient Problems: Active and Suspected Problems (Last Reviewed 09/22/20 @ 21:[address] Bjorn Manrique MD) Sciatica (Acute) Low back pain (Acute) Acute right lumbar radiculopathy (Acute) Acute right lumbar radiculopathy (Acute) Spinal stenosis, lumbar region with neurogenic claudication (Acute) Spinal stenosis, lumbar region with neurogenic claudication (Acute) Intervertebral disc stenosis of neural canal of lumbar region (Acute) Intervertebral disc stenosis of neural canal of lumbar region (Acute) Other intervertebral disc displacement, lumbar region (Acute) Other intervertebral disc displacement, lumbar region (Acute) Intervertebral disc disorders with radiculopathy, lumbar region (Acute) Unspecified abnormalities of gait and mobility (Acute) Myalgia, unspecified site (Acute) Subjective: Patient appears to be in mild to moderate distress and anxiety due to level of pain. - Physical Exam Vitals/I&O's: Vital Signs Temp Pulse Resp BP Pulse Ox 98.4 F 91 18 143/54 H 98 09/23/20 14:43 09/23/20 14:43 09/23/20 14:43 09/23/20 14:43 09/23/20 14:43 Oxygen Flow Rate (L/min) 2 Oxygen Delivery Method Room Air Weight: 53.479 kg Body Mass Index (BMI) 21.2 Intake and Output for Last 24 Hours 09/21/20 09/22/20 09/23/20 23:59 23:59 23:59 Intake Total 1100 / 1100 Output Total 200 / 200 Balance 900 / 900 General: Alert, Oriented x3, Cooperative, Well developed HEENT: Atraumatic, PERRLA, EOMI Oral: Moist Mucosa Neck: Supple Lungs: No rhonchi, No wheeze, No rales Cardiovascular: Regular rate, Regular Rhythm Abdomen: Soft, Non Tender, Non-Distended Extremities: No clubbing, No cyanosis, No edema Skin: No rashes, No breakdown Musculoskeletal: Tenderness Lymphatic: No Cervical, Supraclavicular, or Inguinal Adenopathy Neurological: Motor Exam 5/5 strength throughout, Unsteady Gait, Muscle tone normal, - - Patient has positive SLR on the right slightly diminished L5-S1 reflex on the right Psych/Mental Status: Anxious Laboratory Results 09/22/20 21:25: WBC 10.1, RBC 4.17 L, Hgb 12.9, Hct 38.0, MCV 91.1, MCH 30.9, MCHC 33.9, RDW Std Deviation 42.1, RDW Coeff of Ivan 12.6, Plt Count 357, MPV 9.6, Immature Gran % (Auto) 0.300, Neut % (Auto) 87.6 H, Lymph % (Auto) 8.2 L, [place] % (Auto) 3.1, Eos % (Auto) 0.3, Baso % (Auto) 0.5, Absolute Neuts (auto) 8.8 H, Absolute Lymphs (auto) 0.82 L, Nucleated RBC % 0 09/22/20 21:25: Sodium 139, Potassium 3.4 L, Chloride 108 H, Carbon Dioxide 2 7.0, Anion Gap 4 L, BUN 17, Creatinine 0.60, Estim Creat Clear Calc 38.44, Est GFR (MDRD) Af Amer 125, Est GFR (MDRD) Non-Af 103, BUN/Creatinine Ratio 28.2 H, Glucose 116 H, Calcium 9.0 09/23/20 06:15: Sodium 138, Potassium 3.8, Chloride 104, Carbon Dioxide 28.0, Anion Gap 6, BUN 16, Creatinine 0.61, Estim Creat Clear Calc 38.44, Est GFR (MDRD) Af Amer 123, Est GFR (MDRD) Non-Af 102, BUN/Creatinine Ratio 26.3 H, Glucose 139 H, Calcium 9.1 Current Medications Albuterol Sulfate (Albuterol 2.5 Mg/3 Ml Vial.Neb.) 2.5 mg INHALATION Q6HWA.RT [facility] Last Admin: 09/23/20 12:30 Dose: 2.5 mg Documented by: Ascorbic Acid (Ascorbic Acid 500 Mg Tablet) 1,000 mg PO DAILY [facility] Last Admin: 09/23/20 09:26 Dose: 1,000 mg Documented by: Atorvastatin Calcium (Atorvastatin Calcium 40 Mg Tablet) 40 mg PO QHS [facility] Last Admin: 09/22/20 22:28 Dose: 40 mg Documented by: Calcium Carbonate (Calcium Carbonate 500 Mg Tablet) 500 mg PO Q6H PRN PRN PRN Reason: INDIGESTION Last Admin: 09/23/20 15:31 Dose: 500 mg Documented by: Calcium/Vitamin D (Calcium Carb/Vitamin D 1 Tablet Tablet) 1 tablet PO DAILY [facility] Last Admin: 09/23/20 09:26 Dose: 1 tablet Documented by: Enoxaparin Sodium (Enoxaparin 40 Mg/0.4 Ml Syringe) 40 mg SC DAILY [facility] Last Admin: 09/23/20 09:27 Dose: 40 mg Documented by: Hydralazine HCl (Hydralazine 20 Mg/Ml Vial) 5 mg IV Q6H PRN PRN PRN Reason: SBP > 160 or DBP > 120 Hydrochlorothiazide (Hydrochlorothiazide 12.5mg) 12.5 mg PO DAILY [facility] Last Admin: 09/23/20 09:26 Dose: 12.5 mg Documented by: Sodium Chloride () 250 mls @ 15 mls/hr IV .[id number] PRN PRN Reason: Saline Flush Ketorolac Tromethamine (Ketorolac 15 Mg/Ml Vial) 15 mg IV Q6H PRN PRN PRN Reason: Pain Score 1-10 Stop: 09/28/20 17:20 Last Admin: 09/23/20 17:47 Dose: 15 mg Documented by: Lidocaine (Lidocaine 5% Patch) 1 patch TOPICAL DAILY [facility]; Protocol Last Admin: 09/23/20 17:47 Dose: 1 patch Documented by: Losartan Potassium (Losartan Potassium 50 Mg Tablet) 50 mg PO DAILY [facility] Last Admin: 09/23/20 09:22 Dose: 50 mg Documented by: Melatonin (Melatonin 3 Mg Tablet) 3 mg PO QHS PRN PRN PRN Reason: INSOMNIA Nicotine (Nicotine 14 Mg Patch) 14 mg TD DAILY [facility] Last Admin: 09/23/20 09:27 Dose: 14 mg Documented by: Omeprazole (Omeprazole 20 Mg Capsule) 20 mg PO DAILY [facility] Ondansetron HCl (Ondansetron 4 Mg/2 Ml Vial) 4 mg IV Q8H PRN PRN PRN Reason: NAUSEA/VOMITING Oxycodone HCl (Oxycodone 5 Mg Tablet) 5 mg PO Q4H PRN PRN PRN Reason: Pain Score 4-5 Oxycodone HCl (Oxycodone 5 Mg Tablet) 10 mg PO Q4H PRN PRN PRN Reason: Pain Score 6-10 Last Admin: 09/23/20 13:06 Dose: 10 mg Documented by: Prednisone (Prednisone 20 Mg Tablet) 40 mg PO DAILY@0800 [facility] Last Admin: 09/23/20 09:24 Dose: 40 mg Documented by: Sodium Chloride (0.9% Saline Lock 10 Ml Syringe) 10 - 40 ml IV UD PRN PRN Reason: SALINE FLUSH Last Admin: 09/23/20 17:47 Dose: 10 ml Documented by: Assessment/Plan All Active Problems (Last Reviewed 09/22/20 @ 21:[address] Bjorn Manrique MD) Sciatica (Acute) Low back pain (Acute) Acute right lumbar radiculopathy (Acute) Acute right lumbar radiculopathy (Acute) Spinal stenosis, lumbar region with neurogenic claudication (Acute) Spinal stenosis, lumbar region with neurogenic claudication (Acute) Intervertebral disc stenosis of neural canal of lumbar region (Acute) Intervertebral disc stenosis of neural canal of lumbar region (Acute) Other intervertebral disc displacement, lumbar region (Acute) Other intervertebral disc displacement, lumbar region (Acute) Intervertebral disc disorders with radiculopathy, lumbar region (Acute) Unspecified abnormalities of gait and mobility (Acute) Myalgia, unspecified site (Acute) Patient is presented with acute on top of chronic right lower radiculopathy due to clear right L4-5 5 S1 foraminal stenosis however she also has similar severity of stenosis on the left side but she has more symptoms on the right however patient neurologically is intact, she has no foot drop however she has some unbalanced gait but mainly pronounced due to the severe pain. Patient has no issue with bladder or bowel control. I have discussed 2 scenarios of treatment with the patient, I have discussed the first scenario : we will be starting adjusting on some multimodal analgesia by titrating low-dose gabapentin for her radicular pain, also switching her oral steroid to IV Decadron for 3 doses, also starting on IM muscle acting like Norflex to be switched to oral muscle relaxant tomorrow and reevaluate her response in 24 hours. If patient has responded adequately she can discharge home with basic physical therapy and she can return back to the office on Saturday or Saturday on her convenience to receive outpatient epidural injection which probably she will benefit from L4-5 or L5-S1 epidural injection that can be provided in the office as an outpatient basis the patient chose to go home either tomorrow night or Saturday if she feels better. I have also discussed scenario #2 if patient, as we also started on adjusting on the above regimen as noted on her orders but if the patient has not showed any improvement and still having difficulty with her gait due to the pain shooting down the right leg, provided that she has no worsening or new neurological red flags, patient can stay in the hospital till Saturday and will have Dr. Quintero needs to provide her in patient lumbar L4-5 epidural steroid versus right L4-5 5 S1 transforaminal epidural injection in the operating room to provide some elements of pain relief together with physical therapy and rehabilitation. However if we choose to go with that scenario patient has to hold on hospital anticoagulation Lovenox for 24 hours from Saturday. I have discussed plan of care with nursing team, will be adjusting on the treatment plan and reevaluate response to treatment of the next 24 hours.
[2020-09-23] MEDS: Lidocaine 5% Patch 2 PATCH TOPICAL (19:26)
[2020-09-23] MEDS: Acetaminophen 325 MG Tablet 650 MG PO (19:26)
[2020-09-23] MEDS: Orphenadrine 60 MG/2 ML Ampul IM (21:14)
[2020-09-23] MEDS: Gabapentin 100 MG Capsule PO (21:17)
[2020-09-23] MEDS: dexAMETHasone 4 MG/ML Vial IV (21:17)
[2020-09-23] MEDS: Atorvastatin Calcium 40 MG Tablet PO (21:17)
[2020-09-24] VITALS (7 sets, daily range): BP systolic 131–138; BP diastolic 48–61; PULSE 62–88; RESP 16–20; TEMP 36.2–37.2; O2SAT 93–99
[2020-09-24] MEDS: Gabapentin 100 MG Capsule PO ×3 (05:50→21:31)
[2020-09-24] MEDS: oxyCODONE 5 MG Tablet 10 MG PO ×4 (05:50→21:32)
[2020-09-24] MEDS: Ketorolac 15 MG/ML Vial IV ×2 (05:52→20:13)
[2020-09-24] MEDS: dexAMETHasone 4 MG/ML Vial IV ×2 (05:53→13:03)
[2020-09-24] MEDS: Orphenadrine 60 MG/2 ML Ampul IM (06:43)
[2020-09-24] MEDS: Albuterol 2.5 MG/3 ML VIAL.NEB. INHALATION ×3 (07:22→19:39)
[2020-09-24] MEDS: Omeprazole 20 MG Capsule PO (08:04)
[2020-09-24] MEDS: Acetaminophen 325 MG Tablet 650 MG PO ×4 (08:05→21:31)
[2020-09-24] MEDS: Ascorbic Acid 500 MG Tablet 1000 MG PO (08:06)
[2020-09-24] MEDS: Losartan Potassium 50 MG Tablet PO (08:07)
[2020-09-24] MEDS: hydroCHLOROthiazide 12.5mg 12.5 MG PO (08:07)
[2020-09-24] MEDS: Calcium Carb/Vitamin D 1 TABLET Tablet PO (08:08)
[2020-09-24] MEDS: Enoxaparin 40 MG/0.4 ML Syringe SC (10:15)
--- NOTE | 2020-09-24 10:56 | PCM.PN.HOSP ---
Patient Problems: Active and Suspected Problems (Last Reviewed 09/22/20 @ 21:[address] Bjorn Manrique MD) Sciatica (Acute) Low back pain (Acute) Acute right lumbar radiculopathy (Acute) Acute right lumbar radiculopathy (Acute) Spinal stenosis, lumbar region with neurogenic claudication (Acute) Spinal stenosis, lumbar region with neurogenic claudication (Acute) Intervertebral disc stenosis of neural canal of lumbar region (Acute) Intervertebral disc stenosis of neural canal of lumbar region (Acute) Other intervertebral disc displacement, lumbar region (Acute) Other intervertebral disc displacement, lumbar region (Acute) Intervertebral disc disorders with radiculopathy, lumbar region (Acute) Unspecified abnormalities of gait and mobility (Acute) Myalgia, unspecified site (Acute) Subjective: Still with back pain and right leg pain, but improved overall. Vitals/I&O's: Vital Signs Temp Pulse Resp BP Pulse Ox 36.5 C L 66 18 136/51 H 99 09/24/20 08:52 09/24/20 08:52 09/24/20 08:52 09/24/20 08:52 09/24/20 08:52 Oxygen Flow Rate (L/min) 2 Oxygen Delivery Method Nasal Cannula Weight: 53.479 kg Body Mass Index (BMI) 21.2 Intake and Output for Last 24 Hours 09/22/20 09/23/20 09/24/20 23:59 23:59 23:59 Intake Total 1100 / 1100 400 / 400 Output Total 200 / 600 1000 / 1000 Balance 900 / 500 -600 / -600 General: Alert, No apparent distress HEENT: Atraumatic, Normocephalic Neck: No Nodes, Thyroid Normal Size and Texture Lungs: Clear to auscultation, Normal air movement, No rhonchi, No wheeze Cardiovascular: Regular rate, Regular Rhythm, Normal S1, Normal S2 Abdomen: Bowel Sounds Present, Soft, Non Tender, Non-Distended, No Hepato-splenomegaly Extremities: No edema, No Calf Tenderness Neurological: Motor Exam 5/5 strength throughout, Sensory exam intact to light touch and pain Current Medications Acetaminophen (Acetaminophen 325 Mg Tablet) 650 mg PO 4X/DAY [facility] Last Admin: 09/24/20 08:05 Dose: 650 mg Documented by: Albuterol Sulfate (Albuterol 2.5 Mg/3 Ml Vial.Neb.) 2.5 mg INHALATION Q6HWA.RT [facility] Last Admin: 09/24/20 07:22 Dose: 2.5 mg Documented by: Ascorbic Acid (Ascorbic Acid 500 Mg Tablet) 1,000 mg PO DAILY [facility] Last Admin: 09/24/20 08:06 Dose: 1,000 mg Documented by: Atorvastatin Calcium (Atorvastatin Calcium 40 Mg Tablet) 40 mg PO QHS [facility] Last Admin: 09/23/20 21:17 Dose: 40 mg Documented by: Calcium Carbonate (Calcium Carbonate 500 Mg Tablet) 500 mg PO Q6H PRN PRN PRN Reason: INDIGESTION Last Admin: 09/23/20 15:31 Dose: 500 mg Documented by: Calcium/Vitamin D (Calcium Carb/Vitamin D 1 Tablet Tablet) 1 tablet PO DAILY [facility] Last Admin: 09/24/20 08:08 Dose: 1 tablet Documented by: Dexamethasone Sodium Phosphate (Dexamethasone 4 Mg/Ml Vial) 4 mg IV Q8 [facility] Stop: 09/24/20 14:01 Last Admin: 09/24/20 05:53 Dose: 4 mg Documented by: Enoxaparin Sodium (Enoxaparin 40 Mg/0.4 Ml Syringe) 40 mg SC DAILY [facility] Last Admin: 09/24/20 10:15 Dose: 40 mg Documented by: Gabapentin (Gabapentin 100 Mg Capsule) 100 mg PO TID [facility] Last Admin: 09/24/20 05:50 Dose: 100 mg Documented by: Hydralazine HCl (Hydralazine 20 Mg/Ml Vial) 5 mg IV Q6H PRN PRN PRN Reason: SBP > 160 or DBP > 120 Hydrochlorothiazide (Hydrochlorothiazide 12.5mg) 12.5 mg PO DAILY [facility] Last Admin: 09/24/20 08:07 Dose: 12.5 mg Documented by: Sodium Chloride () 250 mls @ 15 mls/hr IV .[id number] PRN PRN Reason: Saline Flush Ketorolac Tromethamine (Ketorolac 15 Mg/Ml Vial) 15 mg IV Q6H PRN PRN PRN Reason: Pain Score 1-10 Stop: 09/28/20 17:20 Last Admin: 09/24/20 05:52 Dose: 15 mg Documented by: Lidocaine (Lidocaine 5% Patch) 3 patch TOPICAL DAILY [facility]; Protocol Losartan Potassium (Losartan Potassium 50 Mg Tablet) 50 mg PO DAILY [facility] Last Admin: 09/24/20 08:07 Dose: 50 mg Documented by: Melatonin (Melatonin 3 Mg Tablet) 3 mg PO QHS PRN PRN PRN Reason: INSOMNIA Metaxalone (Metaxalone 800 Mg Tablet) 800 mg PO TID [facility] Nicotine (Nicotine 14 Mg Patch) 14 mg TD DAILY [facility] Last Admin: 09/24/20 08:08 Dose: 14 mg Documented by: Omeprazole (Omeprazole 20 Mg Capsule) 20 mg PO DAILY [facility] Last Admin: 09/24/20 08:04 Dose: 20 mg Documented by: Ondansetron HCl (Ondansetron 4 Mg/2 Ml Vial) 4 mg IV Q8H PRN PRN PRN Reason: NAUSEA/VOMITING Oxycodone HCl (Oxycodone 5 Mg Tablet) 5 mg PO Q4H PRN PRN PRN Reason: Pain Score 4-5 Oxycodone HCl (Oxycodone 5 Mg Tablet) 10 mg PO Q4H PRN PRN PRN Reason: Pain Score 6-10 Last Admin: 09/24/20 10:20 Dose: 10 mg Documented by: Sodium Chloride (0.9% Saline Lock 10 Ml Syringe) 10 - 40 ml IV UD PRN PRN Reason: SALINE FLUSH Last Admin: 09/23/20 17:47 Dose: 10 ml Documented by: STROKE Vital Signs/Narrative: Vital Signs Temp Pulse Resp BP Pulse Ox 09/24/20 08:52 36.5 C L 66 18 136/51 H 99 09/24/20 07:23 62 18 93 Medical Necessity - Tobacco Use Smoking Status: Current every day smoker Tobacco Use: Cigarettes Assessment/Plan All Active Problems (Last Reviewed 09/22/20 @ 21:[address] Bjorn Manrique MD) Sciatica (Acute) Low back pain (Acute) Acute right lumbar radiculopathy (Acute) Acute right lumbar radiculopathy (Acute) Spinal stenosis, lumbar region with neurogenic claudication (Acute) Spinal stenosis, lumbar region with neurogenic claudication (Acute) Intervertebral disc stenosis of neural canal of lumbar region (Acute) Intervertebral disc stenosis of neural canal of lumbar region (Acute) Other intervertebral disc displacement, lumbar region (Acute) Other intervertebral disc displacement, lumbar region (Acute) Intervertebral disc disorders with radiculopathy, lumbar region (Acute) Unspecified abnormalities of gait and mobility (Acute) Myalgia, unspecified site (Acute) 1. right leg pain. improving pain radiates from hip to ankle MRI performed and showed abutment of the L5 nerve root. Plan: seen by pain mgmt: changed to dexamethasone. started on gabapentin continue ketorolac, oxycodone since still with symptoms, so plan for epidural on 09/26 2. HTN stable plan: continue HCTZ, losartan 3. VTE prophylaxis: LMWH will need to hold on 09/25 prior to epidural Inpatient E&M: 41545 Subs Hosp L2
[2020-09-24] MEDS: Metaxalone 800 MG Tablet PO ×2 (12:59→21:31)
[2020-09-24] MEDS: 0.9% Saline Lock 10 ML Syringe IV (13:04)
[2020-09-24] MEDS: MELATONIN 3 MG TABLET PO (21:31)
[2020-09-24] MEDS: Atorvastatin Calcium 40 MG Tablet PO (21:31)
[2020-09-25] VITALS (9 sets, daily range): BP systolic 111–149; BP diastolic 47–58; PULSE 66–98; RESP 12–20; TEMP 36.3–37.2; O2SAT 93–96
[2020-09-25] MEDS: Metaxalone 800 MG Tablet PO ×3 (05:33→21:29)
[2020-09-25] MEDS: Gabapentin 100 MG Capsule PO ×3 (05:33→21:29)
[2020-09-25] MEDS: oxyCODONE 5 MG Tablet 10 MG PO (05:35)
[2020-09-25] MEDS: Albuterol 2.5 MG/3 ML VIAL.NEB. INHALATION ×3 (07:03→19:35)
[2020-09-25] MEDS: Lidocaine 5% Patch 3 PATCH TOPICAL (08:26)
[2020-09-25] MEDS: Ascorbic Acid 500 MG Tablet 1000 MG PO (08:28)
[2020-09-25] MEDS: Calcium Carb/Vitamin D 1 TABLET Tablet PO (08:28)
[2020-09-25] MEDS: Acetaminophen 325 MG Tablet 650 MG PO ×4 (08:28→21:29)
[2020-09-25] MEDS: hydroCHLOROthiazide 12.5mg 12.5 MG PO (08:28)
[2020-09-25] MEDS: Losartan Potassium 50 MG Tablet PO (08:29)
[2020-09-25] MEDS: Omeprazole 20 MG Capsule PO (08:30)
--- NOTE | 2020-09-25 09:28 | PCM.PN.HOSP ---
Patient Problems: Active and Suspected Problems (Last Reviewed 09/22/20 @ 21:[address] Bjorn Manrique MD) Sciatica (Acute) Low back pain (Acute) Acute right lumbar radiculopathy (Acute) Acute right lumbar radiculopathy (Acute) Spinal stenosis, lumbar region with neurogenic claudication (Acute) Spinal stenosis, lumbar region with neurogenic claudication (Acute) Intervertebral disc stenosis of neural canal of lumbar region (Acute) Intervertebral disc stenosis of neural canal of lumbar region (Acute) Other intervertebral disc displacement, lumbar region (Acute) Other intervertebral disc displacement, lumbar region (Acute) Intervertebral disc disorders with radiculopathy, lumbar region (Acute) Unspecified abnormalities of gait and mobility (Acute) Myalgia, unspecified site (Acute) Subjective: Feeling better. Still with pain down right lower extremity, but much more tolerable. Able to ambulate, but still with pain. Vitals/I&O's: Vital Signs Temp Pulse Resp BP Pulse Ox 36.3 C L 67 20 H 136/56 H 94 09/25/20 08:19 09/25/20 08:19 09/25/20 08:19 09/25/20 08:19 09/25/20 08:19 Oxygen Flow Rate (L/min) 2 Oxygen Delivery Method Nasal Cannula Weight: 53.479 kg Body Mass Index (BMI) 21.2 Intake and Output for Last 24 Hours 09/23/20 09/24/20 09/25/20 23:59 23:59 23:59 Intake Total 1100 / 1100 1200 / 1200 Output Total 200 / 600 1150 / 1150 Balance 900 / 500 50 / 50 General: Alert, No apparent distress HEENT: Atraumatic, Normocephalic Extremities: No edema, No Calf Tenderness Skin: No rashes, No breakdown Musculoskeletal: No Tenderness to Palpation of Joints or Extremities, No Muscle Wasting Neurological: Motor Exam 5/5 strength throughout, - - diminished sensation on RLE. Psych/Mental Status: Normal Affect, Appropriate Current Medications Acetaminophen (Acetaminophen 325 Mg Tablet) 650 mg PO 4X/DAY [facility] Last Admin: 09/25/20 08:28 Dose: 650 mg Documented by: Albuterol Sulfate (Albuterol 2.5 Mg/3 Ml Vial.Neb.) 2.5 mg INHALATION Q6HWA.RT [facility] Last Admin: 09/25/20 07:03 Dose: 2.5 mg Documented by: Ascorbic Acid (Ascorbic Acid 500 Mg Tablet) 1,000 mg PO DAILY [facility] Last Admin: 09/25/20 08:28 Dose: 1,000 mg Documented by: Atorvastatin Calcium (Atorvastatin Calcium 40 Mg Tablet) 40 mg PO QHS [facility] Last Admin: 09/24/20 21:31 Dose: 40 mg Documented by: Calcium Carbonate (Calcium Carbonate 500 Mg Tablet) 500 mg PO Q6H PRN PRN PRN Reason: INDIGESTION Last Admin: 09/23/20 15:31 Dose: 500 mg Documented by: Calcium/Vitamin D (Calcium Carb/Vitamin D 1 Tablet Tablet) 1 tablet PO DAILY [facility] Last Admin: 09/25/20 08:28 Dose: 1 tablet Documented by: Enoxaparin Sodium (Enoxaparin 40 Mg/0.4 Ml Syringe) 40 mg SC DAILY [facility] Last Admin: 09/25/20 08:29 Dose: Not Given Documented by: Gabapentin (Gabapentin 100 Mg Capsule) 100 mg PO TID [facility] Last Admin: 09/25/20 05:33 Dose: 100 mg Documented by: Hydralazine HCl (Hydralazine 20 Mg/Ml Vial) 5 mg IV Q6H PRN PRN PRN Reason: SBP > 160 or DBP > 120 Hydrochlorothiazide (Hydrochlorothiazide 12.5mg) 12.5 mg PO DAILY [facility] Last Admin: 09/25/20 08:28 Dose: 12.5 mg Documented by: Sodium Chloride () 250 mls @ 15 mls/hr IV .[id number] PRN PRN Reason: Saline Flush Ketorolac Tromethamine (Ketorolac 15 Mg/Ml Vial) 15 mg IV Q6H PRN PRN PRN Reason: Pain Score 1-10 Stop: 09/28/20 17:20 Last Admin: 09/24/20 20:13 Dose: 15 mg Documented by: Lidocaine (Lidocaine 5% Patch) 3 patch TOPICAL DAILY [facility]; Protocol Last Admin: 09/25/20 08:26 Dose: 3 patch Documented by: Losartan Potassium (Losartan Potassium 50 Mg Tablet) 50 mg PO DAILY [facility] Last Admin: 09/25/20 08:29 Dose: 50 mg Documented by: Melatonin (Melatonin 3 Mg Tablet) 3 mg PO QHS PRN PRN PRN Reason: INSOMNIA Last Admin: 09/24/20 21:31 Dose: 3 mg Documented by: Metaxalone (Metaxalone 800 Mg Tablet) 800 mg PO TID [facility] Last Admin: 09/25/20 05:33 Dose: 800 mg Documented by: Nicotine (Nicotine 14 Mg Patch) 14 mg TD DAILY [facility] Last Admin: 09/25/20 08:29 Dose: 14 mg Documented by: Omeprazole (Omeprazole 20 Mg Capsule) 20 mg PO DAILY [facility] Last Admin: 09/25/20 08:30 Dose: 20 mg Documented by: Ondansetron HCl (Ondansetron 4 Mg/2 Ml Vial) 4 mg IV Q8H PRN PRN PRN Reason: NAUSEA/VOMITING Oxycodone HCl (Oxycodone 5 Mg Tablet) 5 mg PO Q4H PRN PRN PRN Reason: Pain Score 4-5 Oxycodone HCl (Oxycodone 5 Mg Tablet) 10 mg PO Q4H PRN PRN PRN Reason: Pain Score 6-10 Last Admin: 09/25/20 05:35 Dose: 10 mg Documented by: Sodium Chloride (0.9% Saline Lock 10 Ml Syringe) 10 - 40 ml IV UD PRN PRN Reason: SALINE FLUSH Last Admin: 09/24/20 13:04 Dose: 10 ml Documented by: STROKE Vital Signs/Narrative: Vital Signs Temp Pulse Resp BP Pulse Ox 09/25/20 08:19 36.3 C L 67 20 H 136/56 H 94 09/25/20 08:00 67 20 H 94 09/25/20 07:03 66 12 96 Medical Necessity - Tobacco Use Smoking Status: Current every day smoker Tobacco Use: Cigarettes Assessment/Plan All Active Problems (Last Reviewed 09/22/20 @ 21:[address] Bjorn Manrique MD) Sciatica (Acute) Low back pain (Acute) Acute right lumbar radiculopathy (Acute) Acute right lumbar radiculopathy (Acute) Spinal stenosis, lumbar region with neurogenic claudication (Acute) Spinal stenosis, lumbar region with neurogenic claudication (Acute) Intervertebral disc stenosis of neural canal of lumbar region (Acute) Intervertebral disc stenosis of neural canal of lumbar region (Acute) Other intervertebral disc displacement, lumbar region (Acute) Other intervertebral disc displacement, lumbar region (Acute) Intervertebral disc disorders with radiculopathy, lumbar region (Acute) Unspecified abnormalities of gait and mobility (Acute) Myalgia, unspecified site (Acute) 75-year-old white female presents with acute radicular right lower extremity pain. Patient found to have abutment of the L5 nerve root on MRI. Pain medications were optimized still with pain. Plan is for the patient have an epidural injection on the . 1. right leg pain. improving, but still having pain pain radiates from hip to ankle MRI performed and showed abutment of the L5 nerve root. Plan: seen by pain mgmt: dexamethasone, gabapentin, continue ketorolac, oxycodone since still with symptoms, so plan for epidural on 09/26 2. HTN stable plan: continue HCTZ, losartan 3. VTE prophylaxis: LMWH will need to hold on 09/25 prior to epidural Inpatient E&M: [id number] Subs Hosp L2
[2020-09-25] MEDS: oxyCODONE 5 MG Tablet PO (20:32)
[2020-09-25] MEDS: MELATONIN 3 MG TABLET PO (21:29)
[2020-09-25] MEDS: Atorvastatin Calcium 40 MG Tablet PO (21:29)
[2020-09-26] VITALS (17 sets, daily range): BP systolic 115–148; BP diastolic 43–79; PULSE 82–116; RESP 16–20; TEMP 36.7–37.2; O2SAT 81–100; BMI 21.2
[2020-09-26] MEDS: Gabapentin 100 MG Capsule PO (05:05)
[2020-09-26] MEDS: Metaxalone 800 MG Tablet PO (05:05)
[2020-09-26 05:47] LABS: Absolute Lymphocyte Count 0.97 X10^3/uL (0.83-4.51); Absolute Neutrophil Count 9.7 X10^3/uL (2.0-7.7); Basophil# 0.03 X10^3/uL; Basophil% 0.2 % (0-1); Eosinophil# 0.05 X10^3/uL; Eosinophils% 0.4 % (0-5); Hematocrit 37.7 % (37-47); Hemoglobin 12.7 g/dL (12.0-15.0); Lymphocyte # 0.97 X10^3/ul (4.0); Mean Corp Hgb Conc 33.7 g/dL (32-36); Mean Corpuscular Hgb 31.8 pg (27.0-32.0); Mean Corpuscular Volume 94.5 fL (81-99); Mean Platelet Vol. 9.6 fl (6.2-12.0); Monocyte# 1.28 X10^3/uL; Monocyte% 10.6 % (0-10); NRBC Flagged by Analyzer 0 % (0-5); Neutrophil # 9.67 X10^3/uL (2.7-7.7); Neutrophil % 80.4 % (47-70); Platelet Count 334 K/mm3 (150-450); RBC Distribution Width SD 45.2 fl (35.1-43.9); Red Blood Count 3.99 M/mm3 (4.2-5.4); White Blood Count 12.1 K/mm3 (4.4-11.0)
--- NOTE | 2020-09-26 05:55 | EKG12_ITS ---
Test Reason : PRE-OP Blood Pressure : / mmHG Vent. Rate : 085 BPM Atrial Rate : 085 BPM P-R Int : 174 ms QRS Dur : 078 ms QT Int : 368 ms P-R-T Axes : 070 059 072 degrees QTc Int : 437 ms Normal sinus rhythm Normal ECG When compared with ECG of 23-FEB-2020 11:10, No significant change was found Confirmed by CRISTINA PRICE, KELL ([id number]), manager editorial RENY MEIER ([id number]) on 09/27/2020 9:15:30 AM Referred By: ZION GÓMEZ Confirmed By:KELL EVANS MD
[2020-09-26] MEDS: oxyCODONE 5 MG Tablet PO (06:58)
[2020-09-26] MEDS: Albuterol 2.5 MG/3 ML VIAL.NEB. INHALATION ×2 (07:14→13:27)
--- NOTE | 2020-09-26 11:06 | NURSING ---
This nurse contacted Dr. Leon office after reviewing the progress note from 09/23/[address] Dukes. According to Dr. Dukes's note, if pt staying until Saturday (today) and wants epidural then we need to contact Dr. Quintero. This nurse talked with pt and she is not having pain but is tired of laying in this bed. Dr. Quintero's nurse informed Dr. Quintero that pt wants to move forward with the epidural. Dr. Quintero to call this nurse back.
--- NOTE | 2020-09-26 11:50 | CASEMGMT ---
MIRIAM BALDERAS in to discuss POND form with pt. MIRIAM BALDERAS explained POND form, pt voiced understanding. pt signed POND form and filed in chart. Pt provided with copy of signed POND form. Discussed with pt the need for a walker at home and the need for C therapy or outpt therapy. Pt denies the need for a walker, stating she has a cane at home. She also states she does not need therapy after the injection. Will continue to follow. Pt had no further questions or concerns at this time.
[2020-09-26] MEDS: Ketorolac 15 MG/ML Vial IV (12:00)
[2020-09-26] MEDS: 0.9% Saline Lock 10 ML Syringe IV (12:00)
--- NOTE | 2020-09-26 14:00 | NURSING ---
Pt going down via bed to Surgery for Epidural with Dr. Quintero.
[2020-09-26] MEDS: Lactated Ringers 1,000 ML 100 ML IV (14:12)
--- NOTE | 2020-09-26 15:10 | RAD_ITS ---
INDICATION: BLOCK, LUMBAR, EPIDURAL, L5, S1 EXAMINATION/TECHNIQUE: X-RAY - XR Spine Lumbar 1 View COMPARISON: None. FINDINGS: See impression. RAD/Spine 1 View Any Level IMPRESSION: Single AP view of the lower lumbar spine with tip of needle midline and appearing to enter through the L5-S1 space. Electronically Signed: Deangelo Medellin MD at 16:24 EDT Tel , Service support ,
[2020-09-26] MEDS: Triamcinolone Acetonide 40 MG/ML Vial (15:25)
[2020-09-26] MEDS: Lidocaine 0.5% (50 ml) 50 ML Vial (15:25)
[2020-09-26] MEDS: Ipratropium/Albuterol Sulfate 3 ML AMPUL.NEB INHALATION ×2 (15:48→19:18)
--- NOTE | 2020-09-26 16:31 | NURSING ---
Just arrived back to room. Ambulated with assist to bathroom and back to bed.
--- NOTE | 2020-09-26 17:50 | PCM.DC ---
- Discharge Diagnoses Current Active Problems: Current Active and Chronic Problems (Last Reviewed 09/22/20 @ 21:[address] Bjorn Manrique MD) Sciatica (Acute) Low back pain (Acute) Acute right lumbar radiculopathy (Acute) Acute right lumbar radiculopathy (Acute) Spinal stenosis, lumbar region with neurogenic claudication (Acute) Spinal stenosis, lumbar region with neurogenic claudication (Acute) Intervertebral disc stenosis of neural canal of lumbar region (Acute) Intervertebral disc stenosis of neural canal of lumbar region (Acute) Other intervertebral disc displacement, lumbar region (Acute) Other intervertebral disc displacement, lumbar region (Acute) Intervertebral disc disorders with radiculopathy, lumbar region (Acute) Unspecified abnormalities of gait and mobility (Acute) Myalgia, unspecified site (Acute) Left inguinal hernia (Chronic) You will use the following diet at home:: No restrictions Your food should be the consistency of: Regular Your liquids should be the consistency of: Regular/Thin Discharge Activity: Return to Normal Activity Weight Bearing Status: Full weight bearing Instructions: ED Sciatica Additional Instructions: Recommend you stop smoking-smoking will make your back disease worse, and you have COPD Allergies/Adverse Reactions: Allergies codeine Allergy (Intermediate, Verified 09/22/20 18:06) stomach pains Medications to take at Discharge ascorbic acid (vitamin C) 500 mg capsule 1,000 mg PO DAILY cap 02/03/20 atorvastatin 40 mg tablet 40 mg PO QHS 02/03/20 calcium carbonat and lactate 200 mg calcium-vitamin D3 250 unit tablet 1 tab PO DAILY tab 02/03/20 hydrochlorothiazide 12.5 mg capsule 12.5 mg PO DAILY 02/03/20 losartan 50 mg tablet 50 mg PO DAILY 02/03/20 omeprazole 20 mg capsule,delayed release 20 mg PO DAILY 02/03/20 Hydrocodone Bitart/Apap 5-325 [[place] 5MG-325MG] 1 - 2 tablet PO Q6H PRN PRN 7 Days #20 tablet 09/26/20 Albuterol IH (ProAir) [Proair Hfa (SP)Vent Pts] 2 puff INHALATION 4X/DAY #1 inhaler 09/27/20 Budesonide/Formoterol 160/4.5 [Symbicort 160/4.5 Mcg Inhaler (SP)] 1 puff INHALATION BID #1 09/27/20 levoFLOXacin tablet [Levaquin tablet] 500 mg PO DAILY #6 tablet 09/27/20 The following prescriptions were given: levoFLOXacin tablet [Levaquin tablet] 500 mg PO DAILY #6 tablet Transmission Status: Received by [id number] Hydrocodone Bitart/Apap 5-325 [[place] 5MG-325MG] 1 - 2 tablet PO Q6H PRN PRN 7 Days #20 tablet PRN Reason: Pain Score 1-10 Transmission Status: Received by [id number] Albuterol IH (ProAir) [Proair Hfa (SP)Vent Pts] 2 puff INHALATION 4X/DAY #1 inhaler Transmission Status: Received by [id number] Budesonide/Formoterol 160/4.5 [Symbicort 160/4.5 Mcg Inhaler (SP)] 1 puff INHALATION BID #1 Primary Care Physician: Magda Alejandra ANIMAL ATTENDANT, ANIMAL ATTENDANT-C [Primary Care Provider] - As Needed Please follow up with your Primary Care Physician in: in one week, you will need a follow up chest x-ray in 10 days Test Results: Test results from this visit will be discussed in further detail at your follow-up appointment, if applicable. Please Follow Up With: Blayne Quintero MD When: as directed
--- NOTE | 2020-09-26 18:39 | PN_ITS ---
Patient Problems: Active and Suspected Problems (Last Reviewed 09/22/20 @ 21:[address] Bjorn Manrique MD) Sciatica (Acute) Low back pain (Acute) Acute right lumbar radiculopathy (Acute) Acute right lumbar radiculopathy (Acute) Spinal stenosis, lumbar region with neurogenic claudication (Acute) Spinal stenosis, lumbar region with neurogenic claudication (Acute) Intervertebral disc stenosis of neural canal of lumbar region (Acute) Intervertebral disc stenosis of neural canal of lumbar region (Acute) Other intervertebral disc displacement, lumbar region (Acute) Other intervertebral disc displacement, lumbar region (Acute) Intervertebral disc disorders with radiculopathy, lumbar region (Acute) Unspecified abnormalities of gait and mobility (Acute) Myalgia, unspecified site (Acute) Subjective: Patient was seen and examined today, she had an epidural injection today, unfortunately, the patient still requires oxygen at rest-sitting on the side of the bed her O2 sat was 85% on room air, I talked with her granddaughter who was in the room today during the time of my examination and I talked with the patient, I will place the patient on DuoNeb aerosol treatments and Pulmicort aerosol treatments and reevaluate her tomorrow. There is a possibility she may require oxygen when she goes home, patient is still actively smoking at home and is using Symbicort once a day. - Physical Exam Vitals/I&O's: Vital Signs Temp Pulse Resp BP Pulse Ox 98.4 F 101 H 20 H 148/79 H 91 09/26/20 16:36 09/26/20 16:36 09/26/20 16:36 09/26/20 16:36 09/26/20 18:14 Oxygen Flow Rate (L/min) 2 Oxygen Delivery Method Room Air Weight: 53.479 kg Body Mass Index (BMI) 21.2 Intake and Output for Last 24 Hours 09/24/20 09/25/20 09/26/20 23:59 23:59 23:59 Intake Total 1200 / 1200 960 / 960 290 / 290 Output Total 1150 / 1150 Balance 50 / 50 960 / 960 290 / 290 General: Alert, Oriented x3, Cooperative, No apparent distress, Well developed, Well nourished HEENT: Atraumatic, PERRLA, EOMI, Normocephalic Oral: Moist Mucosa Neck: Supple, No JVD, Negative Carotid Bruits, Trachea Midline, Thyroid Normal Size and Texture Lungs: Clear to auscultation, Normal air movement, No rhonchi, No wheeze, Rales - Inspiratory rales were noted over the patient's right lung base Cardiovascular: Regular rate, Regular Rhythm, Normal S1, Normal S2, No murmurs, PMI Normal Abdomen: Bowel Sounds Present, Soft, Non Tender, Non-Distended Extremities: No clubbing, No cyanosis, No edema, Capillary Refill Less than 3 Seconds Skin: No rashes, No breakdown Musculoskeletal: No Tenderness to Palpation of Joints or Extremities Neurological: Cranial nerves II-XII grossly intact, Neuro grossly intact, Sensory exam intact to light touch and pain, Coordination normal Psych/Mental Status: Normal Affect, Appropriate, Alert and oriented to time, place, person, mood and affect Laboratory Results 09/26/20 05:38: WBC 12.1 H, RBC 3.99 L, Hgb 12.7, Hct 37.7, MCV 94.5, MCH 31.8, MCHC 33.7, RDW Std Deviation 45.2 H, RDW Coeff of Ivan 13.0, Plt Count 334, MPV 9.6, Immature Gran % (Auto) 0.400, Neut % (Auto) 80.4 H, Lymph % (Auto) 8.0 L, [place] % (Auto) 10.6 H, Eos % (Auto) 0.4, Baso % (Auto) 0.2, Absolute Neuts (auto) 9.7 H, Absolute Lymphs (auto) 0.97, Nucleated RBC % 0 Current Medications Acetaminophen (Acetaminophen 325 Mg Tablet) 650 mg PO 4X/DAY [facility] Last Admin: 09/26/20 14:47 Dose: Not Given Documented by: Albuterol Sulfate (Albuterol 2.5 Mg/3 Ml Vial.Neb.) 2.5 mg INHALATION Q6HWA.RT [facility] Last Admin: 09/26/20 13:27 Dose: 2.5 mg Documented by: Albuterol/Ipratropium (Ipratropium/Albuterol Sulfate 3 Ml Ampul.Neb) 3 ml INHALATION Q6HWA.RT [facility] Ascorbic Acid (Ascorbic Acid 500 Mg Tablet) 1,000 mg PO DAILY [facility] Last Admin: 09/26/20 11:55 Dose: Not Given Documented by: Atorvastatin Calcium (Atorvastatin Calcium 40 Mg Tablet) 40 mg PO QHS [facility] Last Admin: 09/25/20 21:29 Dose: 40 mg Documented by: Budesonide (Budesonide Respules 0.5 Mg/2 Ml Ampul.Neb.) 0.5 mg INHALATION BID.RT [place] Calcium Carbonate (Calcium Carbonate 500 Mg Tablet) 500 mg PO Q6H PRN PRN PRN Reason: INDIGESTION Last Admin: 09/23/20 15:31 Dose: 500 mg Documented by: Calcium/Vitamin D (Calcium Carb/Vitamin D 1 Tablet Tablet) 1 tablet PO DAILY [facility] Last Admin: 09/26/20 11:55 Dose: Not Given Documented by: Gabapentin (Gabapentin 100 Mg Capsule) 100 mg PO TID [facility] Last Admin: 09/26/20 14:46 Dose: Not Given Documented by: Hydralazine HCl (Hydralazine 20 Mg/Ml Vial) 5 mg IV Q6H PRN PRN PRN Reason: SBP > 160 or DBP > 120 Hydrochlorothiazide (Hydrochlorothiazide 12.5mg) 12.5 mg PO DAILY [facility] Last Admin: 09/26/20 11:54 Dose: Not Given Documented by: Sodium Chloride () 250 mls @ 15 mls/hr IV .[id number] PRN PRN Reason: Saline Flush Lactated Ringer's () 1,000 mls @ 100 mls/hr IV .Q10H [facility] Last Admin: 09/26/20 14:12 Dose: 100 mls/hr Documented by: Ketorolac Tromethamine (Ketorolac 15 Mg/Ml Vial) 15 mg IV Q6H PRN PRN PRN Reason: Pain Score 1-10 Stop: 09/28/20 17:20 Last Admin: 09/26/20 12:00 Dose: 15 mg Documented by: Lidocaine (Lidocaine 5% Patch) 3 patch TOPICAL DAILY [facility]; Protocol Last Admin: 09/26/20 11:54 Dose: Not Given Documented by: Losartan Potassium (Losartan Potassium 50 Mg Tablet) 50 mg PO DAILY [facility] Last Admin: 09/26/20 11:54 Dose: Not Given Documented by: Melatonin (Melatonin 3 Mg Tablet) 3 mg PO QHS PRN PRN PRN Reason: INSOMNIA Last Admin: 09/25/20 21:29 Dose: 3 mg Documented by: Metaxalone (Metaxalone 800 Mg Tablet) 800 mg PO TID [facility] Last Admin: 09/26/20 14:46 Dose: Not Given Documented by: Nicotine (Nicotine 14 Mg Patch) 14 mg TD DAILY [facility] Last Admin: 09/26/20 11:54 Dose: Not Given Documented by: Omeprazole (Omeprazole 20 Mg Capsule) 20 mg PO DAILY [facility] Last Admin: 09/26/20 11:55 Dose: Not Given Documented by: Ondansetron HCl (Ondansetron 4 Mg/2 Ml Vial) 4 mg IV Q8H PRN PRN PRN Reason: NAUSEA/VOMITING Oxycodone HCl (Oxycodone 5 Mg Tablet) 5 mg PO Q4H PRN PRN PRN Reason: Pain Score 4-5 Last Admin: 09/26/20 06:58 Dose: 5 mg Documented by: Oxycodone HCl (Oxycodone 5 Mg Tablet) 10 mg PO Q4H PRN PRN PRN Reason: Pain Score 6-10 Last Admin: 09/25/20 05:35 Dose: 10 mg Documented by: Sodium Chloride (0.9% Saline Lock 10 Ml Syringe) 10 - 40 ml IV UD PRN PRN Reason: SALINE FLUSH Last Admin: 09/26/20 12:00 Dose: 10 ml Documented by: Medical Necessity - Tobacco Use Smoking Status: Current every day smoker Tobacco Use: Cigarettes Assessment/Plan All Active Problems (Last Reviewed 09/22/20 @ 21:[address] Bjorn Manrique MD) Sciatica (Acute) Low back pain (Acute) Acute right lumbar radiculopathy (Acute) Acute right lumbar radiculopathy (Acute) Spinal stenosis, lumbar region with neurogenic claudication (Acute) Spinal stenosis, lumbar region with neurogenic claudication (Acute) Intervertebral disc stenosis of neural canal of lumbar region (Acute) Intervertebral disc stenosis of neural canal of lumbar region (Acute) Other intervertebral disc displacement, lumbar region (Acute) Other intervertebral disc displacement, lumbar region (Acute) Intervertebral disc disorders with radiculopathy, lumbar region (Acute) Unspecified abnormalities of gait and mobility (Acute) Myalgia, unspecified site (Acute) #1 acute sciatica-I have elected to stop the patient's Skelaxin, gabapentin, and Lidoderm patches #2 hypoxia-probably secondary to chronic obstructive pulmonary disease, patient states that she has had pulmonary function tests in the past but has never been told she had lung disease-she is however on a Symbicort inhaler at home. Patient will be reevaluated tomorrow, I have decided to place her on DuoNeb aerosol treatments and Pulmicort aerosol treatments in the meantime. Patient has a history of COPD currently charted in her medical record that was entered in 2019. I will order chest x-ray and the patient. #3 hyperlipidemia #4 essential hypertension #5 COPD OBSV E&M: 42277 Subsequent observation care L3
[2020-09-26] MEDS: Acetaminophen 325 MG Tablet 650 MG PO ×2 (18:41→21:05)
--- NOTE | 2020-09-26 18:49 | RAD_ITS ---
STUDY: X-RAY CHEST REASON FOR EXAM: Female, 75 years old. hypoxia on RA TECHNIQUE: PA and lateral views of the chest. COMPARISON: 03/21/2011. FINDINGS: The lungs are normally expanded. New interstitial right lower lobe airspace opacity concerning for pneumonia. Remainder of the lung [place] are clear. There is no demonstrated pleural abnormality. Normal size heart. Normal mediastinum and milla. Normal visualized pulmonary arteries. There is atherosclerotic calcification of the aortic arch with tortuosity. There is demineralization of the osseous structures. There is degenerative osteoarthritis of the bilateral shoulders and spine. There is no demonstrated abnormality of the visualized soft tissue structures of the upper abdomen. RAD/Chest PA and Lateral IMPRESSION: Right lower lobe interstitial pneumonia. Electronically Signed: Roshni Keene MD at 0:21 EDT , Service support ,
[2020-09-26] MEDS: Budesonide Respules 0.5 MG/2 ML AMPUL.NEB. INHALATION (19:18)
[2020-09-26] MEDS: Atorvastatin Calcium 40 MG Tablet PO (21:04)
[2020-09-27] VITALS (7 sets, daily range): BP systolic 105–151; BP diastolic 57–63; PULSE 72–108; RESP 18–20; TEMP 36.5–36.7; O2SAT 88–97
[2020-09-27] MEDS: levoFLOXacin 750 MG Tablet PO (00:52)
[2020-09-27] MEDS: guaiFENesin 10 ML UDC (200MG/10ML) PO (02:52)
[2020-09-27] MEDS: Ipratropium/Albuterol Sulfate 3 ML AMPUL.NEB INHALATION (06:56)
[2020-09-27] MEDS: Budesonide Respules 0.5 MG/2 ML AMPUL.NEB. INHALATION (07:01)
--- NOTE | 2020-09-27 07:01 | CT_ITS ---
STUDY: CT CHEST WITHOUT CONTRAST REASON FOR EXAM: Female, 75 years old. pneumonia RADIATION DOSAGE (If Supplied By Facility): CTDIvol = ( 8.36 ) mGy, DLP = ( 313.27 ) mGycm TECHNIQUE: Transaxial imaging was performed without the administration of intravenous contrast material. Multiplanar coronal and sagittal images were reformatted. Individualized dose optimization techniques were used for this CT. COMPARISON: Chest x-ray 09/26/2020. FINDINGS: There are diffuse emphysematous changes in the lungs, as well as fibrotic changes. There are calcified pulmonary granulomas. There is a right lower lobe pulmonary infiltrate, consistent with pneumonia. There is a small right pleural effusion. Normal heart and pericardium. There are coronary artery calcifications. There are a few enlarged mediastinal lymph nodes with short axis diameters ranging up to 1.4 cm in the precarinal and pretracheal region and 1.0 cm in the subcarinal region. Normal hilar regions. Normal unenhanced pulmonary arteries. There are atherosclerotic calcifications of the thoracic aorta and great vessels. There are multi-level degenerative changes of the thoracic spine. There is no evidence for acute pathology within the visualized upper abdomen. CT/Chest without Contrast IMPRESSION: Right lower lobe pneumonia and small right pleural effusion. Suggest follow-up exams to radiographic resolution. Emphysematous and mild fibrotic changes in the lungs. Old granulomatous disease. Atherosclerosis. Mild mediastinal lymphadenopathy. Electronically Signed: Israel Valles MD at 8:00 EDT , Service support ,
[2020-09-27 07:57] LABS: Absolute Lymphocyte Count 0.73 X10^3/uL (0.83-4.51); Absolute Neutrophil Count 11.1 X10^3/uL (2.0-7.7); Basophil# 0.01 X10^3/uL; Basophil% 0.1 % (0-1); Eosinophil# 0.01 X10^3/uL; Eosinophils% 0.1 % (0-5); Hemoglobin 12.4 g/dL (12.0-15.0); Lymphocyte # 0.73 X10^3/ul (4.0); Lymphocyte % 5.8 % (19-41); Mean Corp Hgb Conc 33.5 g/dL (32-36); Mean Corpuscular Hgb 31.6 pg (27.0-32.0); Mean Corpuscular Volume 94.1 fL (81-99); Mean Platelet Vol. 9.7 fl (6.2-12.0); Monocyte% 5.5 % (0-10); NRBC Flagged by Analyzer 0 % (0-5); Neutrophil # 11.14 X10^3/uL (2.7-7.7); Neutrophil % 88.3 % (47-70); Platelet Count 339 K/mm3 (150-450); RBC Distribution Width CV 13.2 % (11.6-14.6); RBC Distribution Width SD 45.3 fl (35.1-43.9); Red Blood Count 3.93 M/mm3 (4.2-5.4); White Blood Count 12.6 K/mm3 (4.4-11.0)
--- NOTE | 2020-09-27 09:24 | CASEMGMT ---
RN CM notified that pt may need O2 upon DC. RN CM in to discuss dc planning with pt. Pt denies needing any therapy post hospital stay. Pt is agreeable to walker and aware of possible O2 needs. CM provided a list of local in network DME providers to pt. Pt wishes to discuss with her dtr. CM will continue to follow this pt and plan for safe dc.
[2020-09-27] MEDS: Losartan Potassium 50 MG Tablet PO (10:11)
[2020-09-27] MEDS: hydroCHLOROthiazide 12.5mg 12.5 MG PO (10:11)
[2020-09-27] MEDS: Acetaminophen 325 MG Tablet 650 MG PO (10:11)
[2020-09-27] MEDS: Omeprazole 20 MG Capsule PO (10:11)
--- NOTE | 2020-09-27 11:00 | CASEMGMT ---
Addendum entered by Khloe Kinsey 09/27/20 13:05: Pt has left, TC to [facility]. Per Tasia, [facility] will deliver the walker to her home today. Original Note: MIRIAM BALDERAS in to room, pt has chosen [facility] after reviewing list of DME companies. Script obtained for FWW, faxed to [facility] with FU tc for confirmation of receipt. Per Dr. Martínez, pt will not need to be set up with O2 at home. Pt updated pt that FWW will be delivered to the room today.
--- NOTE | 2020-09-29 09:51 | PCM.DC.SUM ---
Discharge Date and Diagnosis - Problem List Patient Problems: Active and Suspected Problems (Last Reviewed 09/22/20 @ 21:[address] Bjorn Manrique MD) Sciatica (Acute) Low back pain (Acute) Acute right lumbar radiculopathy (Acute) Acute right lumbar radiculopathy (Acute) Spinal stenosis, lumbar region with neurogenic claudication (Acute) Spinal stenosis, lumbar region with neurogenic claudication (Acute) Intervertebral disc stenosis of neural canal of lumbar region (Acute) Intervertebral disc stenosis of neural canal of lumbar region (Acute) Other intervertebral disc displacement, lumbar region (Acute) Other intervertebral disc displacement, lumbar region (Acute) Intervertebral disc disorders with radiculopathy, lumbar region (Acute) Unspecified abnormalities of gait and mobility (Acute) Myalgia, unspecified site (Acute) Date of Admission: 09/22/20 Date of Discharge: 09/27/20 - Primary Discharge Diagnosis Acute Problems: Active Problems (Last Reviewed 09/22/20 @ 21:[address] 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 Bjorn Manrique MD) Left inguinal hernia (Chronic) Hospital Course and Treatment Operations: None Procedures: - - Lumbar epidural injection L5-S1 Summary of Care Provided: The patient is a 75 year old F seen in the emergency room at [place] with chief complaint of lower back pain and right leg pain. Work-up in the emergency room noted labs which showed a normal CBC, chemistry profile showed a slightly low potassium of 3.4. Patient's examination was compatible with right-sided sciatica versus disc rupture. Patient was placed in observation status on MedSurg 3, CBC pain medications and an MRI was performed which showed multilevel disc disease along with 2 disc protrusions and spinal stenosis. Patient was seen by PT and OT, she was also seen by pain management who performed a lumbar epidural injection. Before the patient was discharged, it was noted that the patient was hypoxic on ambulation, CT scan of the chest revealed evidence of emphysema-the patient is a longtime smoker and is on home inhalers. She qualified for oxygen on ambulation with a pulse ox of 88% but declined oxygen to be set up at home. She did not require oxygen at rest. On examination she appeared in good health and spirits, she does not appear to be in any distress. Vital signs as documented. Skin warm and dry and without overt rashes. Neck without JVD, thyroid appears normal, trachea is midline, neck is supple. Lungs clear, normal air movement was noted. Heart exam notable for regular rhythm, normal sounds and absence of murmurs, rubs or gallops. Abdomen unremarkable and without evidence of organomegaly, masses, or abdominal aortic enlargement, bowel sounds are present in all 4 quadrants, no abdominal tenderness was noted. Extremities nonedematous, no cyanosis was noted, no clubbing was noted. Neuro: Cranial nerves II through XII are grossly intact, no focal motor deficits were noted, sensation to light touch and pinprick is intact, motor exam 5/5 throughout. Psych: Patient is alert and oriented x3, she does not appear anxious or depressed, she does not appear agitated. On 09/27/2020, patient was seen and examined and felt to be stable for discharge home, adjustments were made in her home-going medications and she was instructed to follow-up with her PCP regarding her respiratory issues. She was to follow-up with for further care as an outpatient. Patient Problems: Active and Suspected Problems (Last Reviewed 09/22/20 @ 21:[address] Bjorn Manrique MD) Sciatica (Acute) Low back pain (Acute) Acute right lumbar radiculopathy (Acute) Acute right lumbar radiculopathy (Acute) Spinal stenosis, lumbar region with neurogenic claudication (Acute) Spinal stenosis, lumbar region with neurogenic claudication (Acute) Intervertebral disc stenosis of neural canal of lumbar region (Acute) Intervertebral disc stenosis of neural canal of lumbar region (Acute) Other intervertebral disc displacement, lumbar region (Acute) Other intervertebral disc displacement, lumbar region (Acute) Intervertebral disc disorders with radiculopathy, lumbar region (Acute) Unspecified abnormalities of gait and mobility (Acute) Myalgia, unspecified site (Acute) - Physical Exam Vitals/I&O's: Vital Signs Temp Pulse Resp BP Pulse Ox 98.1 F 108 H 20 H 105/63 91 09/27/20 12:34 09/27/20 12:34 09/27/20 12:34 09/27/20 12:34 09/27/20 12:34 Oxygen Flow Rate (L/min) [ 2 AMBULATING with Oxygen #1] Oxygen Flow Rate (L/min) 2 Oxygen Delivery Method Room Air Weight: 53.479 kg Body Mass Index (BMI) 21.2 Intake and Output for Last 24 Hours 09/27/20 09/28/20 09/29/20 23:59 23:59 23:59 Intake Total 980 / 980 Balance 980 / 980 Discharge Activity: Return to Normal Activity Weight Bearing Status: Full weight bearing Home Medications: Medications to take at Discharge ascorbic acid (vitamin C) 500 mg capsule 1,000 mg PO DAILY cap 02/03/20 atorvastatin 40 mg tablet 40 mg PO QHS 02/03/20 calcium carbonat and lactate 200 mg calcium-vitamin D3 250 unit tablet 1 tab PO DAILY tab 02/03/20 hydrochlorothiazide 12.5 mg capsule 12.5 mg PO DAILY 02/03/20 losartan 50 mg tablet 50 mg PO DAILY 02/03/20 omeprazole 20 mg capsule,delayed release 20 mg PO DAILY 02/03/20 Hydrocodone Bitart/Apap 5-325 [[place] 5MG-325MG] 1 - 2 tablet PO Q6H PRN PRN 7 Days #20 tablet 09/26/20 Albuterol IH (ProAir) [Proair Hfa (SP)Vent Pts] 2 puff INHALATION 4X/DAY #1 inhaler 09/27/20 Budesonide/Formoterol 160/4.5 [Symbicort 160/4.5 Mcg Inhaler (SP)] 1 puff INHALATION BID #1 09/27/20 levoFLOXacin tablet [Levaquin tablet] 500 mg PO DAILY #6 tablet 09/27/20 Following Prescriptions Were Given to Patient: levoFLOXacin tablet [Levaquin tablet] 500 mg PO DAILY #6 tablet Transmission Status: Received by [id number] Hydrocodone Bitart/Apap 5-325 [[place] 5MG-325MG] 1 - 2 tablet PO Q6H PRN PRN 7 Days #20 tablet PRN Reason: Pain Score 1-10 Transmission Status: Received by [id number] Albuterol IH (ProAir) [Proair Hfa (SP)Vent Pts] 2 puff INHALATION 4X/DAY #1 inhaler Transmission Status: Received by [facility] Budesonide/Formoterol 160/4.5 [Symbicort 160/4.5 Mcg Inhaler (SP)] 1 puff INHALATION BID #1 Primary Care Physician: Magda Alejandra [employer], [employer]C [Primary Care Provider] - As Needed Please follow up with your Primary Care Physician in: in one week, you will need a follow up chest x-ray in 10 days Please Follow Up With: Blayne Quintero MD When: as directed Patient Instructions: ED Sciatica Disposition: Home Minutes spent on discharge:: 30 Patient Condition:: Stable Medical Necessity - Tobacco Use Smoking Status: Current every day smoker Tobacco Use: Cigarettes Meaningful Use Info Meaningful Use Diagnoses (Choose all that apply): None applicable OBSV E&M: 00035 Observation care discharge
== END 2020-09-27 12:40 | disposition home or self-care (01) ==
LOC: ED 21:00 → MS3 21:21
PROVIDERS: Anesthesiology; Anesthesiology Pain Medicine; Admitting Provider Hospitalist; Emergency Provider Emergency Medicine; PCP Nurse Practitioner; Visit Provider Internal Medicine
PROC: 3E0S3BZ Introduction of Anesthetic Agent into Epidural Space, Percutaneous Approach (ICD-10-PCS; CPT 62322; principal; 2020-09-26 14:55)
DX: M51.16 Intervertebral disc disorders with radiculopathy, lumbar region (principal); M48.062 Spinal stenosis, lumbar region with neurogenic claudication; I10 Essential (primary) hypertension; J44.9 Chronic obstructive pulmonary disease, unspecified; E78.5 Hyperlipidemia, unspecified; R09.02 Hypoxemia; M81.0 Age-related osteoporosis without current pathological fracture; F17.210 Nicotine dependence, cigarettes, uncomplicated; K21.9 Gastro-esophageal reflux disease without esophagitis; Z79.899 Other long term (current) drug therapy; Z79.82 Long term (current) use of aspirin
CPT/HCPCS: 62323; 64483; 71046; 71250; 72020; 72148; 80048; 85025; 93005; 94640; 96361; 96372; 96374; 96375; 96376; 97110; 97116; 97161; 97165; 97530; 97535; 99218; 99284; 99406; J7120; A4216; G0378; J2405

== ENCOUNTER → 2021-12-22 | Outpatient (CLI) | payer MEDICARE, SELFPAY ==
--- NOTE | 2021-12-22 | LES_PTH ---
PATIENT: MARY REED LOC: [facility] U#:[id number] AGE/SX: 76/F ROOM: RE12/22/[address]: Dr. Dayne Stewart MD : 1945 BED: DIS: 12/22/2021 SPEC #: [id number] RECD: 12/22/21 10:22 STATUS: MARTIN NAREN #: [id number] ANABEL: 12/22/21 00:[address]: Dayne Stewart DEPT: SURGICAL PATHOLOGY RECD BY: Keegan Fuchs ENTERED: 12/22/21 10:22 SP TYPE: Lesion OTHR DR: Magda Alejandra, [employer] HELPER-C Tissues: Skin of eyelid, NOS Procedures: Surgery Specimen Level IV HEADER OPERATION: Right upper eyelid lesion excision PRE-OP DIAGNOSIS: Right upper eyelid lesion TISSUE SUBMITTED: Right upper eyelid lesion MICROSCOPIC DIAGNOSIS Right upper eyelid lesion, biopsy: Intradermal nevus. AM:myles 12/25/2021 MICROSCOPIC DESCRIPTION Slides are reviewed. GROSS DESCRIPTION Received in fixative is one container labeled with the patient's name and designated right upper eyelid. The specimen consists of one irregular fragment of starks-white skin measuring 0.2 x 0.1 x 0.1 cm. The specimen is totally submitted in one cassette. / SJ:rg 12/22/2021 TC:5 CPT: 50561
== END | disposition home or self-care (01) ==
LOC: LABSPEC 10:09
PROVIDERS: PCP Nurse Practitioner; Visit Provider Ophthalmology
DX: D31.91 Benign neoplasm of unspecified part of right eye (principal)
CPT/HCPCS: 88305

== ENCOUNTER → 2022-09-20 | Outpatient (CLI) | payer MEDICARE, SELFPAY ==
--- NOTE | 2022-09-20 10:38 | RAD_ITS ---
STUDY: X-RAY - PELVIS AND BILATERAL HIPS REASON FOR EXAM: Female, 77 years old. Pain and stiffness TECHNIQUE: AP view of the pelvis.? 2 views of the right hip, and 2 views of the left hip were obtained. COMPARISON: None. FINDINGS: There is a non-specific bowel gas pattern. Normal visualized soft tissue structures. Normal bilateral iliac wings, sacroiliac joints and visualized sacrum. Normal bilateral superior and inferior pubic rami. Normal pubic symphysis. Normal bilateral ischial tuberosities. Normal visualized right femoral head. Normal right acetabulum. There is mild articular joint space narrowing of the right hip. Normal visualized left femoral head. Normal left acetabulum. There is mild articular joint space narrowing of the left hip. RAD/Hips B/L min 2 views w/ Pelvis IMPRESSION: Mild degenerative changes, no acute findings Electronically Signed: Gagandeep Monsalve MD at 11:18 EDT ,
== END | disposition home or self-care (01) ==
LOC: RAD 10:36
PROVIDERS: PCP Nurse Practitioner Family; Visit Provider Anesthesiology Pain Medicine
DX: M25.559 Pain in unspecified hip (principal)
CPT/HCPCS: 73521

== ENCOUNTER 2023-03-05 09:18 | Day surgery (SDC) | payer MEDICARE, SELFPAY ==
[2023-03-05] VITALS (7 sets, daily range): BP systolic 112–141; BP diastolic 51–63; PULSE 87–119; RESP 16; TEMP 36.2–36.6; O2SAT 95–97; BMI 19.8
[2023-03-05] MEDS: Lactated Ringers 1,000 ML 15 ML IV (09:47)
--- NOTE | 2023-03-05 10:11 | PCM.HP.BLA ---
History and Physical Date of Admission: 03/05/23 Intake Vital Signs 12/22/2209:05 02/11/2313:19 Height 5 ft 0.5 in 5 ft 2 in Weight: 110 lb 8 oz BMI 20.2 BP 180/68 H Blood Pressure Location Rt brachial Position Sitting Respiration 17 Pulse 68 Pulse Source Monitor Temp 97.6 F L Temp Source Temporal Pulse Oximetry (%) 94 Intake Visit Reasons: COLONOSCOPY Chief Complaint: colonoscopy Allergies codeine Allergy (Intermediate, Verified 02/11/23 13:20) stomach pains Medications ascorbic acid (vitamin C) 500 mg capsule 1,000 mg PO DAILY supplement 02/03/20 [History Confirmed 02/11/23] atorvastatin 40 mg tablet 40 mg PO QHS cholesterol 02/03/20 [History Confirmed 02/11/23] calcium carb and lactate 200 mg-vitamin D3 6.25 mcg (250 unit) tablet 1 tab PO DAILY supplement 02/03/20 [History Confirmed 02/11/23] hydrochlorothiazide 12.5 mg capsule 12.5 mg PO DAILY bp 02/03/20 [History Confirmed 02/11/23] losartan 50 mg tablet 50 mg PO DAILY bp 02/03/20 [History Confirmed 02/11/23] omeprazole 20 mg capsule,delayed release 20 mg PO DAILY gerd 02/03/20 [History Confirmed 02/11/23] albuterol sulfate 90 mcg/actuation aerosol inhaler 2 puff inhalation 4X/DAY ##1 09/27/20 [Rx Confirmed 02/11/23] budesonide-formoterol HFA 160 mcg-4.5 mcg/actuation aerosol inhaler 1 puff inhalation BID copd ##1 09/27/20 [Rx Confirmed 02/11/23] levofloxacin 500 mg tablet 500 mg PO DAILY #6 tabs 09/27/20 [Rx Confirmed 02/11/23] [facility] Medical History Acid reflux COPD (chronic obstructive pulmonary disease) Hemorrhoids Hypertension Smoker Surgical History History of hysterectomy History of laparoscopic cholecystectomy History of left inguinal hernia repair (~03/2020) History of right inguinal hernia repair Family History Mother DiabetesFather Heart diseaseAunt Osteoporosis Social History Smoking Status: Current every day smoker alcohol intake: never substance use type: does not use HPI HPI HPI: Patient is here for colonoscopy. She had colonoscopy 3 years ago and 3 polyps were removed. Patient denies any abdominal pain or blood in the stool. ROS General General: No weight change, appetite, fatigue, colon cancer, breast cancer or weakness HEENT HEENT: No difficulty swallowing, eye injury, eye surgery, swollen glands or hoarseness Endo Endocrine: No thyroid disease, diabetes mellitus, thyroid cancer, Hair loss, heat intolerance or cold intolerance Skin Skin: No rash or changing moles Breast Breast: No left breast lump, right breast lump, nipple discharge, breast pain, abnormal mammogram, abnormal US or breast enlargement Musc Musculoskeletal: Yes back problems; No arthritis, rheumatoid arthritis, gout or joint pain Cardio Cardiovascular: Yes high blood pressure; No murmur, pacemaker, heart disease, atrial fibrillation, heart attack, heart stent, palpitations, shortness of breat with exertion or chest pain Psych Psychiatric: No depression, anxiety or hearing voices Resp Respiratory: No shortness of breath, No sleep apnea, No cough, Yes COPD, No asthma, No emphysema and No wheezing Gastro Gastrointestinal: No abdominal pain, No nausea or vomiting, No diarrhea, No constipation, No blood in stool, Yes acid reflux, Yes hemorrhoids, No ulcers, No gallbladder problem and No black,tarry stools Burt Hematologic: No blood thinners, No blood disorders, No bleeding, No anemia and No blood clots Neuro Neurologic: No system reviewed and no additional complaints, except as documented, No as per HPI, No abnormal gait, No abnormal hearing, No abnormal movements, No abnormal speech, No behavioral changes, No burning sensations, No confusion, No convulsions, No disequilibrium, No dizziness, No localized weakness, No frequent falls, No headache(s), No lack of coordination, No loss of vision, No memory loss, No numbness, No other visual disturbances, No radicular pain, No restless legs, No sensory deficit, No syncope, No tingling, No tremor(s), No weakness and No other Exam Const General: cooperative Orientation: alert and oriented x3 HENMT Head: normal to inspection Neck Neck: normal visual inspection and full ROM Chest Chest palpation & inspection: normal inspection of the chest Resp Effort & Inspection: normal respiratory effort Auscultation: clear to auscultation bilaterally Cardio Rate: regular rate Rhythm: regular rhythm GI Inspection: non-distended Palpation: soft and nontender Skin General: no rashes or lesions noted Neuro General: patient alert and patient oriented x3 Extrem General: full ROM Psych Appearance: grossly normal Mental Status: mental status grossly normal Assessment and Plan Assessment and Plan (1) History of colon polyps: Status: Acute Orders: Orders Colonoscopy 03/05/23 Plan Patient requires surveillance colonoscopy for history of multiple polyps removed 3 years ago. She denies any abdominal pain or blood in the stool. I explained endoscopy in detail to the patient. I explained the risks including but not limited to stroke or heart attack with anesthesia, perforation of the GI tract, bleeding, infection. I explained that any of these could necessitate further emergency surgery. The patient understands and all questions were answered sufficiently. The patient wishes to proceed with procedure. Shawn Hickman MD Pager: [facility] [address] [place] [address] [address] [place] [address] Office: I have examined the patient and the H&P has been reviewed. There are no clinical changes since date of exam.
--- NOTE | 2023-03-05 10:30 | COLBX_PTH ---
PATIENT: MARY REED LOC: EN U#:[id number] AGE/SX: 77/F ROOM: RE03/05/[address]: Dr. Shawn Hickman MD : 1945 BED: DIS: 03/05/2023 SPEC #: [id number] RECD: 03/05/23 11:24 STATUS: MARTIN NAREN #: [id number] ANABEL: 03/05/23 10:[address]: Shawn Hickman DEPT: SURGICAL PATHOLOGY RECD BY: Wendy Simpson ENTERED: 03/05/23 12:17 SP TYPE: COLON BX OTHR DR: Laurita Coles, [employer] ASSOCIATE-C Tissues: Rectum, NOS Procedures: Surgery Specimen Level IV HEADER OPERATION: Colonoscopy with polypectomy PRE-OP DIAGNOSIS: History of colon polyps TISSUE SUBMITTED: Rectal polyp MICROSCOPIC DIAGNOSIS Rectal polyp, polypectomy: Tubular adenoma. ANTONIETA:myles 03/06/2023 MICROSCOPIC DESCRIPTION Slides are reviewed. GROSS DESCRIPTION Received in fixative is one container labeled with the patient's name and designated rectal polyp. The specimen consists of one irregular fragment of light starks soft tissue that measures 0.3 x 0.3 x 0.1 cm. The specimen is totally submitted in one cassette. / SJ:myles 03/05/2023 TC:1 CPT: 46375
--- NOTE | 2023-03-05 11:05 | OP.COLON_ITS ---
Patient Name: Nancy Magaña Procedure Date: 03/05/2023 10:46 AM Date of : 1945 Age: 77 Procedure: Colonoscopy Indications: High risk colon cancer surveillance: Personal history of colonic polyps Providers: Shawn Hickman MD Referring MD: Brianna Orellana Medicines: Monitored Anesthesia Care Patient Profile: Last Colonoscopy: 5 years ago. Complications: No immediate complications. Procedure: Pre-Anesthesia Assessment: - Prior to the procedure, a History and Physical was performed, and patient medications and allergies were reviewed. The patient's tolerance of previous anesthesia was also reviewed. The risks and benefits of the procedure and the sedation options and risks were discussed with the patient. All questions were answered, and informed consent was obtained. Prior Anticoagulants: The patient has taken no anticoagulant or antiplatelet agents. After reviewing the risks and benefits, the patient was deemed in satisfactory condition to undergo the procedure. After I obtained informed consent, the scope was passed under direct vision. Throughout the procedure, the patient's blood pressure, pulse, and oxygen saturations were monitored continuously. The pediatric colonoscope was introduced through the anus and advanced to the cecum, identified by appendiceal orifice and ileocecal valve. The colonoscopy was performed without difficulty. The patient tolerated the procedure well. The quality of the bowel preparation was good. The ileocecal valve, appendiceal orifice, and rectum were photographed. Scope In: 10:50:25 AM Scope Withdrawal Time 0 hours 6 minutes 12 seconds Scope Out: 11:02:31 AM Total Procedure Duration Time 0 hours 12 minutes 6 seconds Findings: A small polyp was found in the rectum. The polyp was removed with a hot snare. Resection and retrieval were complete. The exam was otherwise without abnormality on direct and retroflexion views. Impression: - One small polyp in the rectum, removed with a hot snare. Resected and retrieved. - The examination was otherwise normal on direct and retroflexion views. Recommendation: - Discharge patient to home. - Resume previous diet. - Continue present medications. - Await pathology results. - Repeat colonoscopy in 5 years for surveillance based on pathology results. Procedure Code(s): --- Professional --- 03565, Colonoscopy, flexible; with removal of tumor(s), polyp(s), or other lesion(s) by snare technique Diagnosis Code(s): --- Professional --- Z86.010, Personal history of colonic polyps D12.8, Benign neoplasm of rectum CPT copyright 2021 [employer]. All rights reserved. The codes documented in this report are preliminary and upon auditing coder review may be revised to meet current compliance requirements. Shawn Hickman MD 03/05/2023 11:05:25 AM This report has been signed electronically. Number of Addenda: 0 Note Initiated On: 03/05/2023 10:46 AM
--- NOTE | 2023-03-05 11:05 | OP.CCLET_ITS ---
03/05/2023 Brianna Orellana Re : Colonoscopy procedure for Nancy Magaña Dear Sanket This procedure was performed on Sunday, March 05, 2023. My impressions and recommendations are as follows: Impressions : - One small polyp in the rectum, removed with a hot snare. Resected and retrieved. - The examination was otherwise normal on direct and retroflexion views. Recommendations : - Discharge patient to home. - Resume previous diet. - Continue present medications. - Await pathology results. - Repeat colonoscopy in 5 years for surveillance based on pathology results. My findings are described in the full procedure note, which is enclosed. If I can be of further assistance, please feel free to contact me at Doctor phone number(s): , Work: . Sincerely, Shawn Hickman MD 03/05/2023 11:05:25 AM This report has been signed electronically.
== END 2023-03-05 11:59 | disposition home or self-care (01) ==
LOC: EN 09:20 → AC 09:47
PROVIDERS: PCP Nurse Practitioner Family; Referring Provider Nurse Practitioner Family; Visit Provider Surgery
PROC: 0DJD8ZZ Inspection of Lower Intestinal Tract, Via Natural or Artificial Opening Endoscopic (ICD-10-PCS; CPT 45378; principal; 2023-03-05 10:25)
DX: Z12.11 Encounter for screening for malignant neoplasm of colon (principal); J44.9 Chronic obstructive pulmonary disease, unspecified; Z82.62 Family history of osteoporosis; Z86.010 Personal history of colon polyps; F17.200 Nicotine dependence, unspecified, uncomplicated; Z90.49 Acquired absence of other specified parts of digestive tract; I10 Essential (primary) hypertension; D12.8 Benign neoplasm of rectum; K21.9 Gastro-esophageal reflux disease without esophagitis
CPT/HCPCS: 45385; 88305; J7120; J2405

== ENCOUNTER → 2024-05-18 | Outpatient (CLI) | payer MEDICARE, SELFPAY | END | disposition home or self-care (01) | PROVIDERS: PCP Nurse Practitioner Family; Referring Provider Anesthesiology Pain Medicine; Visit Provider Anesthesiology Pain Medicine | DX: M54.16 Radiculopathy, lumbar region (principal) | CPT/HCPCS: 72148 ==